=== PATIENT | female | born 1945 | race Caucasian/White ===

== ENCOUNTER 2020-01-12 21:14 | Emergency (ER) | payer OTHER, BC ==
[2020-01-12] MEDS ORDERED: ONDANSETRON 4 MG/2 ML VIAL ONE (21:56)
[2020-01-12] MEDS ORDERED: METOPROLOL TARTRATE 5 MG/5 ML INJ IV ONE ×2 (21:59→22:45)
[2020-01-12] MEDS ORDERED: NA CHLORIDE 0.9% 1,000 ML ONE (22:07)
[2020-01-12 22:21] LABS: Basophils % 0.5 % (0-1.3); Hematocrit 29.6 % (36.0-45.0); MPV 8.6 fL (7.6-11.3); RBC Red Blood Cell Count 3.82 M/uL (3.86-4.86)
[2020-01-12] MEDS ORDERED: MORPHINE 2 MG/ML SYR ONE (22:21)
[2020-01-12 22:22] LABS: Protime INR 2.52
[2020-01-12 22:37] LABS: ALT/SGPT 10 U/L (12-78); AST/SGOT 18 U/L (15-37); Albumin 2.4 g/dL (3.4-5.0); Alkaline Phosphatase 88 U/L (45-117); BUN Blood Urea Nitrogen 25 mg/dL (7-18); Bicarbonate 22 mmol/L (21-32); Bilirubin Direct 0.2 mg/dL (0-0.2); Bilirubin Total 0.5 mg/dL (0.2-1.0); Glucose Level 127 mg/dL (74-106); Magnesium 2.3 mg/dL (1.8-2.4); NT PRO-BNP 434 pg/mL (<125); Potassium 4.2 mmol/L (3.5-5.1); Protein, Total 7.4 g/dL (6.4-8.2); Sodium Level 140 mmol/L (136-145); Troponin (Emerg Dept Use Only) < 0.02 ng/mL (0.0-0.045)
--- NOTE | 2020-01-12 22:58 | ER ---
Nurse's Notes [facility] Name: Earl Orellnaa Age: 74 yrs Sex: Female : 1945 Arrival Date: 01/12/2020 Time: 21:16 Bed 3 Private MD: Diagnosis: Supraventricular tachycardia. Pulmonary embolism. Uterine Ca with metastasis. Presentation: 01/11 21:19 Chief complaint: EMS states: that they were toned for pt having severe abd/back pain. fc Upon there arrival and hooking pt to monitor it was noted that pt was in SVT at 180. Coronavirus screen: Client denies travel out of the [place] in the last 14 days. Ebola Screen: Patient negative for fever greater than or equal to 101.5 degrees Fahrenheit, and additional compatible Ebola Virus Disease symptoms Patient denies exposure to infectious person. Patient denies travel to an Ebola-affected area in the 21 days before illness onset. Initial Sepsis Screen: Does the patient meet any 2 criteria? HR > 90 bpm. No. Patient's initial sepsis screen is negative. Does the patient have a suspected source of infection? No. Patient's initial sepsis screen is negative. Risk Assessment: Do you want to hurt yourself or someone else? Patient reports no desire to harm self or others. Onset of symptoms was January 12, 2020. Care prior to arrival: Medication(s) given: Normal saline infusion, 700 ml Versed 5 mg and Adenosine 12 mg IV initiated. 18 GA, in the right antecubital area, Glucose check: 180 Shocked with 50 joules. 21:19 Method Of Arrival: EMS: [facility] 21:19 Acuity: ROMULO 2 fc Historical: - Allergies: 21:34 Aspirin; fc - Home Meds: 21:34 Eliquis oral oral [Active]; fc - PMHx: 21:34 Pulmonary Embolus; Uterine Cancer; ALS; fc - PSHx: 21:34 None; fc - Immunization history:: Last tetanus immunization: unknown, Flu vaccine is not up to date. - Social history:: Smoking status: Patient denies any tobacco usage or history of. Patient/guardian denies using alcohol, street drugs. Screenin:19 Abuse screen: Denies threats or abuse. Nutritional screening: No deficits noted. fc Tuberculosis screening: No symptoms or risk factors identified. Fall Risk None identified. Fall in past 12 months (25 points). Secondary diagnosis (15 points) ALS. IV access (20 points). Ambulatory Aid- None/Bed Rest/Nurse Assist (0 pts). Gait- Impaired (20 pts.). Mental Status- Overestimates/Forgets Limitations (15 pts.). Total Argueta Fall Scale indicates High Risk Score (45 or more points). Fall prevention measures have been instituted. Side Rails Up X 2 Placed Close to Nursing Station Frequent Obs/Assessments Occuring Family Present and informed to notify staff if the need to leave the bedside As available patient and family educated on Fall Prevention Program and Strategies. Assessment: 21:19 General: Appears distressed, uncomfortable, Behavior is calm, cooperative, appropriate jb4 for age. Pain: Complains of pain in Generalized body pains. Pain does not radiate. Pain currently is 10 out of 10 on a pain scale. 21:19 Neuro: Level of Consciousness is awake, alert, obeys commands, Oriented to person, jb4 place, time, situation. Cardiovascular: Patient's skin is warm and dry. Respiratory: Airway is patent Respiratory effort is even, unlabored, Respiratory pattern is regular, symmetrical. GI: No signs and/or symptoms were reported involving the gastrointestinal system. : No signs and/or symptoms were reported regarding the genitourinary system. EENT: No signs and/or symptoms were reported regarding the EENT system. Derm: Skin is intact, Skin is dry, Skin is pale, Skin temperature is warm. Musculoskeletal: Circulation, motion, and sensation intact. Range of motion: intact in all extremities. 21:40 Reassessment: PT back in SVT with a heart rate of 174, reports nausea, provider jb4 notified, see MAR for orders. 22:19 Reassessment: PT's pressure dropped to 88/70 provider notified, see MAR for orders. jb4 22:48 Reassessment: Patient appears in no apparent distress at this time. Patient and/or jb4 family updated on plan of care and expected duration. Pain level reassessed. Pt remains alert and oriented. Appears to be resting more comfortably after second dose of Lopressor. Reports pain is unchanged with morphine administration, Provider notified that heart rate is maintaining at 144 bpm. Blood pressure is holding at 91/69. respirations are even and unlabored. 23:16 Reassessment: No changes from previously documented assessment. Patient and/or family jb4 updated on plan of care and expected duration. Pain level reassessed. Patient is alert, oriented x 3, equal unlabored respirations, skin warm/dry/pink. Report called to Mimi SMITH, at [facility]. 23:18 Reassessment: PT's HR 150, provider notified, see [facility] for orders. jb4 23:48 Reassessment: Patient appears in no apparent distress at this time. Patient and/or jb4 family updated on plan of care and expected duration. Pain level reassessed. Patient is alert, oriented x 3, equal unlabored respirations, skin warm/dry/pink. Report given to EMS. Vital Signs: 21:19 BP 125 / 93; Pulse 119; Resp 20; Temp 97.6(O); Pulse Ox 100% on R/A; Weight 79.38 kg fc (R); Height 5 ft. 9 in. (175.26 cm) (R); Pain 10/10; 21:47 BP 102 / 71; Pulse 176; Resp 19; Pulse Ox 100% on 2 lpm NC; jb4 22:17 BP 88 / 70; Pulse 147; Resp 19; Pulse Ox 100% on 2 lpm NC; jb4 22:45 BP 91 / 69; Pulse 143; Resp 20; Pulse Ox 100% on 2 lpm NC; jb4 23:15 BP 92 / 65; Pulse 148; Resp 20; Pulse Ox 100% on 2 lpm NC; jb4 23:30 BP 91 / 54; Pulse 142; Resp 22; Pulse Ox 100% on 2 lpm NC; jb4 21:19 Body Mass Index 25.84 (79.38 kg, 175.26 cm) ED Course: 21:16 Patient arrived in ED. cf2 21:19 Patient has correct armband on for positive identification. Bed in low position. Call light in reach. Side rails up X2. registration manager on. Pulse ox on. NIBP on. 21:19 Maintain EMS IV. Dressing intact. Good blood return noted. Site clean \T\ dry. Gauge \T\ fc site: 18 gauge to right a/c. 21:26 Edil Calvo MD is Attending Physician. pkl 21:29 Maury Tee, SARAH is Primary Nurse. jb4 21:33 Triage completed. fc 21:34 Arm band placed on Patient placed in an exam room, on a stretcher. fc 21:59 XRAY Chest (1 view) In Process Unspecified. EDMS 22:00 Initiated transfer to [facility] spoke with Kathrin Ferris. dc5 22:[address] Benjamin. [facility] 22:[address] Medicine [address] Powers. ar5 23:01 Acceptance given by Kathrin Ferris. Accepting physician is Dr. Powers. Pt. going to [address] [facility] ICU 821 Bed 8. Call report to [phone]. 23:48 No provider procedures requiring assistance completed. Patient transferred, IV remains jb4 in place. Administered Medications: 21:42 Drug: Zofran (Ondansetron) 4 mg Route: IVP; Site: right antecubital; jb4 22:15 Follow up: Response: No adverse reaction; Nausea is decreased jb4 21:45 Drug: Lopressor 5 mg Route: IVP; Site: right antecubital; jb4 22:00 Follow up: Response: No adverse reaction; Marked relief of symptoms jb4 21:55 Drug: NS 0.9% 1000 ml Route: IV; Rate: 100 ml/hr; Site: right antecubital; jb4 23:34 Follow up: Response: No adverse reaction; IV Status: Infusion continued upon transfer jb4 22:11 Drug: morphine 1 mg {Note: Rass score 1.} Route: IVP; Site: right antecubital; jb4 22:40 Follow up: Response: Pain is unchanged, physician notified jb4 22:20 Drug: NS 0.9% 250 ml Route: IV; Rate: bolus; Site: right antecubital; jb4 22:51 Follow up: Response: No adverse reaction; Blood pressure is elevated; IV Status: jb4 Completed infusion 22:34 Drug: Lopressor 2.5 mg Route: IVP; Site: right antecubital; jb4 22:40 Follow up: Response: No adverse reaction jb4 23:20 Drug: Lopressor 2.5 mg Route: IVP; Site: right antecubital; jb4 23:33 Follow up: Response: No adverse reaction [facility] Outcome: 22:57 ER care complete, transfer ordered by MD. march 23:48 Transferred by ground EMS [facility] to [facility], Transfer form jb4 completed. 23:48 Condition: improved 23:48 Discharge instructions given to patient, Instructed on the need for transfer, Demonstrated understanding of instructions. 23:50 Patient left the ED. jb4 Signatures: Dispatcher [employer] EDEdil Mullins MD MD pkl Chretien, Felicia RN RN Maury Coker RN RN jb4 Jessi Shen arLeonela Colunga cf2 Corrections: (The following items were deleted from the chart) 22:51 22:48 Reassessment: Patient appears in no apparent distress at this time. Patient jb4 and/or family updated on plan of care and expected duration. Pain level reassessed. Pt remains alert and oriented. Appears to be resting more comfortably after second dose of Lopressor. Reports pain is unchanged with morphine administration, Provider notified that heart rate is maintaining at 144 bpm. Blood pressure is holding at 91/63. respirations are even and unlabored. jb4 22:51 22:38 Response: No adverse reaction; IV Status: Completed infusion jb4 jb4 23:06 22:48 Reassessment: Patient appears in no apparent distress at this time. Patient jb4 and/or family updated on plan of care and expected duration. Pain level reassessed. Pt remains alert and oriented. Appears to be resting more comfortably after second dose of Lopressor. Reports pain is unchanged with morphine administration, Provider notified that heart rate is maintaining at 144 bpm. Blood pressure is holding at 91/69. respirations are even and unlabored. jb4
--- NOTE | 2020-01-12 22:58 | EDPHYS ---
Physician Documentation [facility] Name: Earl Orellana Age: 74 yrs Sex: Female : 1945 Arrival Date: 01/12/2020 Time: 21:16 Bed 3 Private MD: ED Physician Edil Calvo HPI: 01/11 22:40 This 74 yrs old Female presents to ER via EMS with complaints of pkl Palpitations, Pain All Over. 22:40 The patient presents with a history of heart racing. Context: The symptoms occur at pkl rest. Onset: The symptoms/episode began/occurred just prior to arrival, 1 hour(s) ago. Associated signs and symptoms: Pertinent positives: back and abdominal pain. Patient discharged from [facility] last week. Diagnosed with Uterine Ca with metastasis and PE. Patient has H/O ALS. Historical: - Allergies: 21:34 Aspirin; fc - Home Meds: 21:34 Eliquis oral oral [Active]; fc - PMHx: 21:34 Pulmonary Embolus; Uterine Cancer; ALS; fc - PSHx: 21:34 None; fc - Immunization history:: Last tetanus immunization: unknown, Flu vaccine is not up to date. - Social history:: Smoking status: Patient denies any tobacco usage or history of. Patient/guardian denies using alcohol, street drugs. ROS: 22:40 Eyes: Negative for injury, pain, redness, and discharge, ENT: Negative for injury, pkl pain, and discharge, Neck: Negative for injury, pain, and swelling. 22:40 Cardiovascular: Positive for palpitations. 22:40 Respiratory: Negative for cough. 22:40 Abdomen/GI: Positive for abdominal pain. 22:40 Back: Positive for pain at rest. 22:40 : Negative for urinary symptoms. 22:40 MS/extremity: Negative for acute changes. 22:40 Skin: Negative for rash. 22:40 Neuro: Negative for altered mental status. Exam: 22:40 Head/Face: Normocephalic, atraumatic. Eyes: Pupils equal round and reactive to light, pkl extra-ocular motions intact. Lids and lashes normal. Conjunctiva and sclera are non-icteric and not injected. Cornea within normal limits. Periorbital areas with no swelling, redness, or edema. ENT: Nares patent. No nasal discharge, no septal abnormalities noted. Tympanic membranes are normal and external auditory canals are clear. Oropharynx with no redness, swelling, or masses, exudates, or evidence of obstruction, uvula midline. Mucous membranes moist. Neck: Trachea midline, no thyromegaly or masses palpated, and no cervical lymphadenopathy. Supple, full range of motion without nuchal rigidity, or vertebral point tenderness. No Meningismus. Chest/axilla: Normal chest wall appearance and motion. Nontender with no deformity. No lesions are appreciated. 22:40 Cardiovascular: Rate: tachycardic, actual rate is 140 bpm, Rhythm: regular. 22:40 ECG was reviewed by the Attending Physician. 22:40 Respiratory: the patient does not display signs of respiratory distress, Respirations: normal, Breath sounds: are clear throughout. 22:40 Abdomen/GI: Bowel sounds: normal, Palpation: soft, mild abdominal tenderness, in the right lower quadrant and left lower quadrant. 22:40 Back: pain, that is moderate, of the lower back. 22:40 : Exam negative for acute changes. 22:40 Musculoskeletal/extremity: Exam is negative for acute changes. 22:40 Skin: Exam negative for rash. 22:40 Neuro: Orientation: appropriate for stated age, Mentation: is normal, Cranial nerves: grossly normal, Motor: is normal. Vital Signs: 21:19 BP 125 / 93; Pulse 119; Resp 20; Temp 97.6(O); Pulse Ox 100% on R/A; Weight 79.38 kg fc (R); Height 5 ft. 9 in. (175.26 cm) (R); Pain 10/10; 21:47 BP 102 / 71; Pulse 176; Resp 19; Pulse Ox 100% on 2 lpm NC; jb4 22:17 BP 88 / 70; Pulse 147; Resp 19; Pulse Ox 100% on 2 lpm NC; jb4 22:45 BP 91 / 69; Pulse 143; Resp 20; Pulse Ox 100% on 2 lpm NC; jb4 23:15 BP 92 / 65; Pulse 148; Resp 20; Pulse Ox 100% on 2 lpm NC; jb4 23:30 BP 91 / 54; Pulse 142; Resp 22; Pulse Ox 100% on 2 lpm NC; jb4 21:19 Body Mass Index 25.84 (79.38 kg, 175.26 cm) MDM: 21:26 Patient medically screened. pkl 22:54 Data reviewed: vital signs, nurses notes, lab test result(s), EKG, radiologic studies, pkl plain films. ED course: Talked to Dr. Powers, transfer to [facility]. 01/11 21:55 Order name: Basic Metabolic Panel; Complete Time: 22:48 pkl 01/11 21:55 Order name: CBC with Diff; Complete Time: 00:42 pkl 01/11 21:55 Order name: LFT's; Complete Time: 22:48 pkl 01/11 21:55 Order name: Magnesium; Complete Time: 22:48 pkl 01/11 21:55 Order name: NT PRO-BNP; Complete Time: 22:48 pkl 01/11 21:55 Order name: PT-INR; Complete Time: 22:48 pkl 01/11 21:55 Order name: Troponin (emerg Dept Use Only); Complete Time: 22:48 pkl 01/11 21:55 Order name: XRAY Chest (1 view) pkl 01/11 22:23 Order name: Manual Differential; Complete Time: 00:42 EDMS 01/11 21:55 Order name: EKG; Complete Time: 21:56 pkl 01/11 21:55 Order name: Cardiac monitoring; Complete Time: 22:10 pkl 01/11 21:55 Order name: EKG - Nurse/Tech; Complete Time: 22:10 pkl 01/11 21:55 Order name: IV Saline Lock; Complete Time: 22:10 pkl 01/11 21:55 Order name: Labs collected and sent; Complete Time: 22:10 pkl 01/11 21:55 Order name: O2 Per Protocol; Complete Time: 22:11 pkl 01/11 21:55 Order name: O2 Sat Monitoring; Complete Time: 22:11 pkl Administered Medications: 21:42 Drug: Zofran (Ondansetron) 4 mg Route: IVP; Site: right antecubital; jb4 22:15 Follow up: Response: No adverse reaction; Nausea is decreased jb4 21:45 Drug: Lopressor 5 mg Route: IVP; Site: right antecubital; jb4 22:00 Follow up: Response: No adverse reaction; Marked relief of symptoms jb4 21:55 Drug: NS 0.9% 1000 ml Route: IV; Rate: 100 ml/hr; Site: right antecubital; jb4 23:34 Follow up: Response: No adverse reaction; IV Status: Infusion continued upon transfer jb4 22:11 Drug: morphine 1 mg {Note: Rass score 1.} Route: IVP; Site: right antecubital; jb4 22:40 Follow up: Response: Pain is unchanged, physician notified jb4 22:20 Drug: NS 0.9% 250 ml Route: IV; Rate: bolus; Site: right antecubital; jb4 22:51 Follow up: Response: No adverse reaction; Blood pressure is elevated; IV Status: jb4 Completed infusion 22:34 Drug: Lopressor 2.5 mg Route: IVP; Site: right antecubital; jb4 22:40 Follow up: Response: No adverse reaction jb4 23:20 Drug: Lopressor 2.5 mg Route: IVP; Site: right antecubital; jb4 23:33 Follow up: Response: No adverse reaction jb Disposition: 01/12/20 22:57 Transfer ordered to [facility]. Diagnosis is Supraventricular tachycardia. Pulmonary embolism. Uterine Ca with metastasis. . - Reason for transfer: Higher level of care. - Accepting physician is Dr. Powers. - Condition is Stable. - Problem is new. - Symptoms are unchanged. Signatures: Dispatcher [employer] Edil Melara MD MD pkUnique Marshall RN RN fc Bryson, James, RN RN jb4 Corrections: (The following items were deleted from the chart) 23:50 22:57 01/12/2020 22:57 Transfer ordered to [facility]. Diagnosis is Supraventricular jb4 tachycardia. Pulmonary embolism. Uterine Ca with metastasis. . Reason for transfer: Higher level of care. Accepting physician is Dr. Powers. Condition is Stable. Problem is new. Symptoms are unchanged. pkl
[2020-01-12 23:26] LABS: Blood Morphology Comment NOT SEEN (NOT SEEN); Platelet Estimate ADEQ
[2020-01-13 00:59] VITALS: BP 91/54; TEMP 97.6; O2SAT 100
--- NOTE | 2020-01-13 08:00 | RAD REPORT ---
EXAM DESCRIPTION: Korey Single View01/12/2020 10:01 pm CLINICAL HISTORY: Palpitation COMPARISON: none FINDINGS: Left lower lobe opacity The right lung appears clear of acute infiltrate The heart is normal size IMPRESSION: Left lower lobe opacity probably pneumonia. This should be followed until it is clear to help exclude a post obstructive process/underlying mass Small left pleural effusion
--- NOTE | 2020-01-14 05:30 | EKG ---
Test Date: 2020-01-12 Test Time: 21:47:56 Shredding Machine Operator: ROBERT MEASUREMENT RESULTS: Intervals: Rate: 176 [place]: QRSD: 70 QT: 262 QTc: 448 [place]: P: FL: QRS: 60 T: 173 INTERPRETIVE STATEMENTS: Supraventricular tachycardia Nonspecific ST and T wave abnormality Abnormal ECG Compared to ECG 01/12/2020 21:25:32 ST (T wave) deviation now present Sinus tachycardia no longer present T-wave abnormality no longer present Electronically Signed On 01-14-20 05:28:47 CDT by Federico Mendoza
--- NOTE | 2020-01-14 05:30 | EKG ---
Test Date: 2020-01-12 Test Time: 21:25:32 Geospatial Scientist: ROBERT MEASUREMENT RESULTS: Intervals: Rate: 119 IL: 190 QRSD: 68 QT: 290 QTc: 407 [place]: P: 47 IL: 190 QRS: 60 T: 73 INTERPRETIVE STATEMENTS: Sinus tachycardia Nonspecific T wave abnormality Abnormal ECG Compared to ECG 11/04/2009 11:20:42 T-wave abnormality now present Electronically Signed On 01-14-20 05:28:48 CDT by Federico Mendoza
--- OUTSIDE RECORDS SUMMARY | 2020-01-14 17:01 | XMS REPORT | Summary of Care ---
:1945 Author Organization [facility] Address [address] [place] [address] Care Team Providers Name Role Phone Mikael Dominguez Primary Care Provider Reason for Referral MRI/CAT Scan (STAT) Status Reason Specialty Diagnoses / Referred By Referred To Procedures Contact Contact New Request Diagnostic Diagnoses Abdominal mass, unspecified abdominal location Mass of pelvis Pleural effusion Christy Kelly Radiology Procedures CT THORAX W CONTRAST CT THORAX WO CONTRAST MD Valeriano [address] [place] [address] (Routine) Status Reason Specialty Diagnoses / Referred By Referred To Procedures Contact Contact New Request Diagnostic Diagnoses Dysphagia, unspecified type Jason Mcgrath MD Radiology Procedures MOD BARIUM SWALLOW, (COOKIE) [address] [place] [address] (Routine) Status Reason Specialty Diagnoses / Referred By Referred To Procedures Contact Contact New Request OG-GYNECOLOGIC Diagnoses Episode of heavy vaginal bleeding Abdominal mass, unspecified abdominal location Mass of pelvis Pleural effusion Jason Mcgrath MD ONCOLOGY Procedures Discharge Follow-Up: Specialty Service OG-GYNECOLOGIC ONCOLOGY; 1 Week [address] [place] [address] MRI/CAT Scan (STAT) Status Reason Specialty Diagnoses / Referred By Referred To Procedures Contact Contact New Request Diagnostic Diagnoses Episode of heavy vaginal bleeding Abdominal pain, unspecified abdominal location ChavezBettina S, Radiology Procedures CT ABDOMEN PELVIS W CONTRAST [address] [place] [address] Reason for Visit Reason Comments Vaginal Bleeding Auth/Cert Status Reason Specialty Diagnoses / Referred By Referred To Procedures Contact Contact Emergency Medicine [facility] ergency Dept [address] [place] [address] Fax: Encounter Details Date Type Department Care Team Description 01/04/2020 - Emergency Transplant/Gynecology Jerome Otero, PRESSURE VESSEL INSPECTOR [address] [place] [phone] Vaginal bleeding 01/05/2020 /Oncology (OSCAR 9D) Bettina Chavez, PAC [address] [place], [place] [id number] [facility] Marty Rossi MD [address] [facility] [id number] [place], [place] [id number] [place] [address] Allergies Active Allergy Reactions Severity Noted Date Comments Aspirin Anaphylaxis 01/04/2020 documented as of this encounter (statuses as of 01/05/2020) Medications Medication Sig Dispensed Refills Start Date End Date Status riluzole 50 mg tablet Take 50 mg by 0 Active mouth every 12 (twelve) hours. documented as of this encounter (statuses as of 01/05/2020) Active Problems Problem Noted Date Vaginal bleeding 01/05/2020 documented as of this encounter (statuses as of 01/05/2020) Social History Tobacco Use Types Packs/Day Years Used Date Never Assessed Sex Assigned at Date Recorded Not on file COVID-19 Exposure Response Date Recorded In the last month, have you been in contact with No / Unsure 01/04/2020 2:48 PM CDT someone who was confirmed or suspected to have Coronavirus / COVID-19? documented as of this encounter Last Filed Vital Signs Vital Sign Reading Time Taken Comments Blood Pressure 129/69 01/05/2020 5:09 PM CDT Pulse 81 01/05/2020 5:09 PM CDT Temperature 36.7 C (98.1 F) 01/05/2020 5:09 PM CDT Respiratory Rate 24 01/05/2020 5:09 PM CDT Oxygen Saturation 98% 01/05/2020 5:09 PM CDT Inhaled Oxygen Concentration - - Weight 77.5 kg (170 lb 12.8 oz) 01/05/2020 5:00 AM CDT Height 170.2 cm (5' 7") 01/04/2020 2:45 PM CDT Body Mass Index 26.75 01/04/2020 2:45 PM CDT documented in this encounter Progress Notes Manjit Gotti MBBS - 01/05/2020 3:57 PM CDTCONDITION CODE 44 Note After reviewing this case with the Meter Repairer Helper it has been determined that this case doesnot meet medical necessity guidelines for an inpatient admission. I concur that this case should bechanged to outpatient, using Medicare Condition Code 44. Patient name: Earl Orellana Service: GYNGEN Attending: Jason Farley MD, [facility] Physician Advisor Samia schwarz LMSW - 01/05/2020 2:34 PM CDT Care Management Discharge Disposition Note (DCDN) 5-2-1 Interventions: Disease specific education;Intensive medication reconciliation/management;Teachback;Clear discharge plan;Follow-up appointments 5-2-1 Providers: Physician;Meter Repairer Helper/Mac Artist;Nurse 5-2-1 Patient Capacity Improvements: Transportation arrangements Discharge Plan for ongoing care and services: Patient Choice completed for referred services: Discussed with patient/patients family involved in decision making: Patient or family caregiver understands, and agrees with discharge plan. Trever Orellana () [phone] Discharge Plan: DME location: Other DME location: Durable Medical Equipment: Home Health location: Discharge location(s): Home [address] [place] [address] Community resources/referrals made or provided to patient: No Resources/Referrals: Mental Status: Alert & Oriented to Person,Place & Time Psychosocial issues and/or concerns resulting in patient being a high risk for re-admission: Manage ADL indepentdly: Yes Living Arrangement: Home: single story Other living arrangement: Address of living arrangement: [address] [place] [address] Funding Resources: Medicare A & B;Supplement/Secondary Has patient been referred to [facility]/Jose? No Nursing informed of discharge plan: Yes CHP referral sent? No CM medication request completed (if appropriate): No PCP: Yes Transportation: Private Vehicle Trever Orellana () [phone]; Francesca Morris (Dtr) [phone] Prior authorization obtained for ambulance: Authorization number: CPT code: Discharge Medications Will the patient be able to obtain his medications? Yes Does the patient have transportation to to obtain the prescription medications? Yes CM Medication Request completed (if appropriate): Yes Name of RN informed: Expected discharge date: 01/05/2020 Time: 1500 Additional Information: CM/SW Name & Contact number: Samia Cason LMSW Ph. [phone] The following information has been provided to the facility noted above: reason for the patient discharge or transfer; patients physical and psychosocial status; summary of care, treatment, servicesprovided to patient; and the patient progress toward goals. Samia Araiza LMSW - 01/05/2020 9:57 AM CDTCare Management Social Functional Assessment Patient Name: Earl Orellana Age: [age] year old Sex: female Previous admit date: N/A Current diagnosis and co-morbidities: Abdominal mass Readmission Questions: Was patient discharged from any acute care hospital within the last 30 days: No Social Functional Assessment: Primary language spoken/preferred: Namibian Mental Status: Alert & Oriented to Person,Place & Time Information given by: Self Patient's support system: Spouse;Child Name and number of support system: Trever Orellana () [phone]; Francesca Morris (Dtr) [phone] Primary Firestopper Technician: Self MPOA: No Living Arrangement: Home: single story Address of living arrangement : [address] [place] [address] Persons living in home: Self;Spouse Names & numbers of persons living in home: Trever Orellana () [phone] Baseline functional status- ambulation: Requires minimal to moderate assistance Functional status-baseline personal care: Requires minimal to moderate assistance Baseline functional status- driving: Dependent Baseline functional status- grocery shopping: Dependent Functional status-baseline housekeeping: Dependent Functional status-baseline meal prep: Dependent Current functional status same as prior: Yes Do you have a PCP?: Yes Name of PCP: Ginger Dominguez Home Health Care Agency: No Provider Services: No DME Company: No Equipment: Wheelchair: Electric;Walker;Cane;Shower bench;Grab bars;Other Other equipment: WC Van Hemodialysis: No Community resources utilized: None Funding Resources: Medicare A & B;Supplement/Secondary Prescription coverage plan: Medicare Part D Pharmacy where meds are filled: Other Other pharmacy: [facility] in [place], [place] Anticipated services prior to disharge: Continue Medical Eval;Reassess prior to discharge Expected mode of discharge transportation: Same as support system Additional info required for discharge planning: Pending medical evaluation Recommended discharge plan: Home with new Home Health;New placement;Home SFA Complete: Social Functional Assessment complete: Yes Alcohol Use Screening (AUDIT-C) How often do you have a drink containing alcohol?: Never SCORE: 0 Did patient elect to have resources provided: No Role of Care Management explained. Any issues or concerns with obtaining/affording your medications at home: no. Are you or your support system able to draft roller picker medications at discharge: yes. Samia Cason LMSW Mac Artist Care Management C: [phone] O: [phone] [email or web address] documented in this encounter H&P Notes Arnie Perez MD - 01/04/2020 11:04 PM CDT GYNECOLOGY H&P DATE OF SERVICE: 01/04/2020 NAME: Earl Orellana #: [id number] PCP: None CC: Vaginal Bleeding HPI: Earl Orellana is a 74 year old with a history of recently diagnosed ALS who presents as atransfer from [place] ED for vaginal bleeding with abdominal mass. Patient reports the bleeding started earlier today when she stood up and felt blood run down her legs. This is the first time this has happened. She denies nausea, vomiting, diarrhea, constipation, dysuria, hematuria, abnormal vaginaldischarge. She reports she has only had to have one pad change since admission to the ED. She reports having issues with abnormal bleeding shortly after menopause which required a D&C and polypectomy but reports she has not had issues with bleeding since then. She reports her last pap smear was 15+ years ago and she has never had an abnormal pap smear. Family history significant for: - Mother with breast cancer (was successfully treated and from natural causes) - Father with rectal cancer () - Sister with esophageal cancer ( 3 years ago) - Brother with kidney cancer ( today) LMP: 20+ years ago Mammogram History: Last mammogram was "many years ago" and it was never abnormal Last Pap Smear: 15+ years ago, never abnormal Last Colorectal Screening: Never done ROS: Constitutional: denies chills, denies fever and denies weakness. Eyes: negative. Cardiovascular: denies chest pain and denies palpitations. Respiratory: denies cough and denies shortness of breath. Breast: negative. Gastrointestinal: + abdominal pain and denies constipation, denies diarrhea, denies nausea and denies vomiting. Genitourinary: + abnormal vaginal bleeding and denies burning, denies dysuria and denies hematuria. Neuro: + speech difficulty and denies dizziness and denies lightheadedness. Psych: feels sad (brother today) and denies anxiety. Endocrine: negative. Hem/Lymph: negative. PMH: Past Medical History: Diagnosis Date ALS (amyotrophic lateral sclerosis) PSH: Past Surgical History: Procedure Laterality Date HYSTEROSCOPY WITH DILATATION AND CURETTAGE (SHX) MEDICATIONS: Current Discharge Medication List STOP taking these medications riluzole 50 mg tablet Comments: Reason for Stopping: ALLERGIES: Allergies Allergen Reactions Aspirin Anaphylaxis PHYSICAL EXAM Patient Vitals for the past 24 hrs: BP Temp Temp src Pulse Resp SpO2 Height Weight 01/04/20 2100 136/85 80 14 96 % 01/04/20 2000 130/64 96 18 97 % 01/04/20 1900 (!) 155/80 81 17 93 % 01/04/20 1800 135/71 72 23 97 % 01/04/20 1638 136/75 76 18 98 % 01/04/20 1445 135/75 36.6 C (97.9 F) Oral 79 14 97 % 1.702 m (5' 7") 72.6 kg (160 lb) Physical exam: General: alert and oriented time 3, in no apparent distress Cardio: normal S1 and S2, RRR, no murmurs heard Lungs: CTA bilaterally, no crackles, rhonchi, or wheezing heard Abdominal: soft, non-tender, Non-distended, firm, enlarged, nonmobile uterus palpated at umbilicus (18cm) Extremities: no clubbing or edema present bilaterally : (R4 exam) Speculum exam: limited due to patient's intolerance of positioning. 10cc of old blood noted in vaginal vault. Could not visualize cervix. Bimanual exam: cervix noted to be very anterior and behind pubic bone. Uterus noted to be fixed and 18 cm in size. No discrete masses palpated. LABS: CBC WBC (10*3/L) Date Value 01/04/2020 8.17 RBC (10*6/L) Date Value 01/04/2020 4.43 PLT (10*3/L) Date Value 01/04/2020 294 HGB (g/dL) Date Value 01/04/2020 10.8 (L) HCT (%) Date Value 01/04/2020 36.1 CMP NA (mmol/L) Date Value 01/04/2020 138 K (mmol/L) Date Value 01/04/2020 4.0 CALCIUM (mg/dL) Date Value 01/04/2020 9.3 CL (mmol/L) Date Value 01/04/2020 108 BUN (mg/dL) Date Value 01/04/2020 19 CREATININE (mg/dL) Date Value 01/04/2020 0.64 GLUCOSE (mg/dL) Date Value 01/04/2020 101 CO2 TOTAL (mmol/L) Date Value 01/04/2020 24 Urinalysis PROTEIN (no units) Date Value 01/04/2020 Negative PH (no units) Date Value 01/04/2020 5.0 GLU U QUAL (no units) Date Value 01/04/2020 Normal KETONES (no units) Date Value 01/04/2020 5 mg/dL (A) BILIRUBIN (no units) Date Value 01/04/2020 Negative LEUK BEL (no units) Date Value 01/04/2020 Negative NITRITE (no units) Date Value 01/04/2020 Negative SP GRAVITY (no units) Date Value 01/04/2020 1.026 IMAGING: Ct Abdomen Pelvis W Contrast Result Date: 01/04/2020 1. Large heterogenous endometrial cavity mass highly concerning for endometrial carcinoma. Soft tissue implants in the rectouterine space are concerning for extrauterine invasion. 2. Findings of peritoneal carcinomatosis with numerous implants in the peritoneal cavity and wall. Trace ascites. Numerous mesenteric and pelvic lymph nodes concerning for metastasis. 3. Soft tissue density mass in the left 10th costovertebral junction invading the left lamina compatible with metastasis. No extension into the spinal canal is identified. 4. Moderate left pleural effusion and atelectasis of the left lower lobe. Preliminary Report Dictated by Resident: Guanakito Benitez I, Tino Hua MD., have reviewed this study and agree with the above report. ASSESSMENT Earl Orellana is a 74 year old with abnormal vaginal bleeding and radiology findings suspicious for endometrial cancer with possible metastasis. She is currently stable and in no acute distress 1. Vaginal Bleeding - Reports started today when she stood up and noticed blood running down her legs; she denies previous episodes of vaginal bleeding - Her last pap smear was 15+ years ago, she has never had an abnormal pap smear to her knowledge - patient denies nausea, vomiting, constipation, diarrhea - CTAP with contrast performed today (01/03) shows endometrial cavity mass highly concerning for endometrial carcinoma with soft tissue implants in the rectouterine space concerning for extrauterine invasion, and peritoneal carcinomatosis with numerous implants in the peritoneal cavity and wall as well as numerous mesenteric and pelvic lymph nodes concerning for metastasis - Speculum exam: limited due to patient's intolerance of positioning. 10cc of old blood noted in vaginal vault. Could not visualize cervix. - Bimanual exam: cervix noted to be very anterior and behind pubic bone. Uterus noted to be fixed and 18 cm in size. No discrete masses palpated. -VSS, Hgb 10.8 - Plan: Will do strict pad counts overnight. Plan for Pap smear/Endometrial biopsy in AM. Consider football coach onc consult. 2. Speech difficulty secondary to likely ALS - Patient reports speech issues that started a few months ago - She has been seen by 2 neurologists and a neuromuscular specialist and has been told she likely has ALS - Was taking Riluzole 50mg but stopped. Reports her next neurology appointment was supposed to be sometime at the end of January but she is unsure if she is going to keep it "with everything going on." -Plan: Riluzole ordered for admission D/w Dr. Bermudez who d/w Dr. Enid Perez MD OBGYN PGY-1 01/05/2020 12:34 AM Pager number: [phone] Associated attestation - Marty Rossi MD - 01/05/2020 9:26 AM CDTThis 74 y/o female patient was [facility] ED after presentingthere with c/o onset of vaginal bleeding. Evaluation in [facility] ED included CT scan of abdom/pelvis which revealed a large intrauterine mass, peritoneal lesions, and pleural effusion consistent with endometrial malignancy and metastases. I agree with the H&P by Dr Perez. Patient will be evaluated with endometrial biopsy to obtain histology. Transfer to [facility]/ONC service anticipated.documented in this encounter ED Notes Samia Holcomb RN - 01/04/2020 2:43 PM CDTPatient states she stood up earlier today and "blood came out running down my legs". This is the first time this has happened. She appears pale and is complaining of general malaise. She think her abdomen is "not as flat" as it usually is and complains of left lower back pain. Abdomen appears round and is slightly firm when palpated. documented in this encounter Miscellaneous Notes Nursing Note - Julia Landers RN - 01/05/2020 9:24 AM CDTRequest to notify Neurologist - Dr. Tutu Foley @ [facility] D Nurse Note - Viktoria Verma RN - 01/04/2020 11:05 PM CDTNurse Report Report given to SARAH Carlisle. Chief complaint, assessment findings and orders reviewed. Plan of care discussed with both nurses. Patient/family members verbalized understanding for transfer and admission. Viktoria Verma RN D Nurse Note - Viktoria Verma RN - 01/04/2020 10:52 PM CDT Attempted to call report. D Nurse Note - Viktoria Verma RN - 01/04/2020 9:25 PM CDTNurse Report Attempted to call report. Viktoria Verma RN D Nurse Note - Viktoria Verma RN - 01/04/2020 9:16 PM CDTPatient admitted to [facility] for diagnosis of abdominal mass and vaginal bleeding. Patient agrees to admission, discussed plan of care with patient and family. Patient is awake, alert, oriented, resp reg unlabored, color appropriate for race, PIV intact. No adverse reaction to medications administered while in ED. Belongings with patient to unit. D Nurse Yordan - Viktoria Verma RN - 01/04/2020 9:15 PM CDTReport given to Jay мария Pal, EMS. D Nurse Note - Gagan Drake RN - 01/04/2020 8:37 PM CDTAllegiance new ETA is 35 mins. D Nurse Note - Kyra Phipps PCT - 01/04/2020 7:51 PM CDTAllegiance ETA 1 hr. 15 minutes D Nurse Note - Viktoria Verma RN - 01/04/2020 7:02 PM CDTPatient provided juice and crackers per provider ok. D Nurse Note - Viktoria Verma RN - 01/04/2020 6:43 PM CDTDaughter at bedside speaking with provider in regards to plan of care and testing results. D Nurse Note - Gagan Lamb - 01/04/2020 2:50 PM CDTFamily member created password to obtain updates over the telephone. Password: "Eder" Family contact: Francesca Morris documented in this encounter Plan of Treatment Name Type Priority Associated Diagnoses Date/Ti me URINE CULTURE LAB STAT Episode of heavy vaginal 4:53 PM bleeding CDT MRSA / MSSA Screen by LAB Routine 2019 6:08 AM PCR, Nares CDT PAP Smear-Liquid Based LAB Routine 01/04 12:27 PM CDT HIGH RISK HPV-THIN LAB Routine 0 12:27 PM PREP CDT SURGICAL PATHOLOGY LAB Routine 0 12:27 PM EXAM CDT MOD BARIUM SWALLOW, IMAGING Routine Dysphagia, unspecifie d 01/05/2020 4:24 PM (COOKIE) type CDT LAB ONLY PAP LAB Routine 01/05/2020 2:4 4 PM SMEAR-LIQUID BASED CDT CT THORAX W CONTRAST IMAGING STAT Abdominal mass, 12/08 6:34 PM unspecified abdominal CDT location Mass of pelvis Pleural effusion Name Type Priority Associated Diagnoses Order S chedule URINE CULTURE LAB Routine Episode of heavy ONCE for 1 Occurrences vaginal bleeding starting until 0 MRSA / MSSA Screen by LAB Routine ONCE f or 1 Occurrences PCR, Nares starting 2019 until 0 PAP Smear-Liquid Based LAB Routine ONCE for 1 Occurrences starting 2019 until 0, 1 completed HIGH RISK HPV-THIN LAB Routine ONCE for 1 Occurrences PREP starting 2019 until 0 SURGICAL PATHOLOGY LAB Routine ONCE for 1 Occurrences EXAM starting 2019 until 0, 1 completed BASIC METABOLIC PANEL LAB Routine ONCE f or 1 Occurrences (NA, K, CL, CO2, starting GLUCOSE, BUN, until 01/05/20 20 CREATININE, CA) MOD BARIUM SWALLOW, IMAGING Routine Dysphagia, unspecifie d ONCE for 1 Occurrences (COOKIE) type starting 2019 until 0 LAB ONLY PAP LAB Routine ONCE for 1 Occu rrences SMEAR-LIQUID BASED starting 01/05/[address] THORAX W CONTRAST IMAGING STAT Abdominal mass, ONCE for 1 Occurrences unspecified abdominal starti ng 01/05/2020 location until 01/05/2020 Mass of pelvis Pleural effusion Health Maintenance Due Date Last Done Comments HEPATITIS C (HCV) SCREEN 1945 Depression Screening 1959 DTaP,Tdap,and Td Vaccines (1 - Tdap) 1966 Breast Cancer Screening (MAMMOGRAM) 1987 COLON CANCER SCREENING ANNUAL FIT/FOBT 1997 COLON CANCER SCREENING FIT DNA EVERY 3 YEARS 1997 COLON CANCER SCREENING SIGMOIDOSCOPY EVERY 5 YEARS 1997 COLONOSCOPY 1997 Colorectal Cancer Screening 1997 Zoster Recombinant Vaccine (SHINGRIX) (1 of 2) 1997 Medicare Wellness Visit 2012 Osteoporosis Screening 2012 PNEUMOCOCCAL VACCINES 65+ (1 of 1 - PPSV23) 2012 INFLUENZA VACCINE (#1) 2019 documented as of this encounter Procedures Procedure Name Priority Date/Time Associated Comments Diagnosis COVID-19 (ID NOW RAPID STAT 01/04/2020 7:02 Episode of hea vy Results for this TESTING) PM CDT vaginal bleeding procedure are in Abdominal pain, the results unspecified section. abdominal locati on Abdominal mass, unspecified abdominal location CT ABDOMEN PELVIS W STAT 01/04/2020 5:14 Episode of heavy Results for this CONTRAST PM CDT vaginal bleeding procedure are in Abdominal pain, the results unspecified section. abdominal location URINALYSIS STAT 01/04/2020 4:53 Episode of heavy Results for this PM CDT vaginal bleeding procedure a re in the results section. CBC WITH DIFF STAT 01/04/2020 3:03 Episode of heavy Result s for this PM CDT vaginal bleeding procedure a re in the results section. BASIC METABOLIC PANEL STAT 01/04/2020 3:03 Episode of heav y Results for this (NA, K, CL, CO2, PM CDT vaginal bleeding procedu re are in GLUCOSE, BUN, the results CREATININE, CA) section. ALANINE AMINO Add-on 01/04/2020 3:03 Results fo r this TRANSFERASE(SGPT PM CDT procedure a re in the results section. ALKALINE PHOSPHATASE, Add-on 01/04/2020 3:03 Re sults for this TOTAL PM CDT procedure are i n the results section. SGOT (ASPARTATE AMINO Add-on 01/04/2020 3:03 Re sults for this TRANSFER) PM CDT procedure are i n the results section. EMERGENCY SERVICES Routine 01/04/2020 12:01 AGREEMENTS AND AM CDT AUTHORIZATIONS documented in this encounter Results COVID-19 (ID NOW RAPID TESTING) (01/04/2020 7:02 PM CDT) SARS-CoV-2 Rapid ID Not Detected Not Detected [facility] Specimen Swab - NASOPHARYNGEAL SWAB Narrative Performed At ID NOW COVID-19 Assay is an isothermal nucleic [facility] acid amplification test intended for the qualitative detection of nucleic acid from SARS-CoV-2 viral RNA in nasopharyngeal (ELECTRIC BATH ATTENDANT) specimens. It is used under Emergency Use Authorization (EUA) by FDA. The limit of detection (LOD) of the assay is 125 Genome Equivalents/mL. A positive result is indicative of the presence of SARS-CoV-2 RNA. Clinical correlation with patient history and other diagnostic information is necessary to determine patient infection status. A negative (Not Detected) result does not preclude SARS-CoV-2 infection. In patients with clinical symptoms and other tests that are consistent with SARS-CoV-2 infection, negative results should be treated as presumptive negative and a new specimen should be tested with alternative PCR molecular test. Invalid: Please collect a new specimen for repeat patient testing if clinically indicated. Performing Organization Address City/State/Zipcode Phone Number [facility] CLIA: [id number] [place] [address] ABDOMEN PELVIS W CONTRAST (01/04/2020 5:14 PM CDT) Specimen Impressions Performed At PACS/VR/DOSE 1. Large heterogenous endometrial cavi ty mass highly concerning for endometrial carcinoma. Soft tissue implants in the rec touterine space are concerning for extrauterine invasion. 2. Findings of peritoneal carcinomatos is with numerous implants in the peritoneal cavity and wall. Trace ascites. Numerous me senteric and pelvic lymph nodes concerning for metastasis. 3. Soft tissue density mass in the lef t 10th costovertebral junction invading the left lamina compatible with metastasis. N o extension into the spinal canal is identified. 4. Moderate left pleural effusion and atelectasis of the left lower lobe. Preliminary Report Dictated by Resident: Tino Jimenez MD., have reviewe d this study and agree with the above report. Narrative Performed At EXAM: CT ABDOMEN AND PELVIS WITH CONTRAS T PACS/VR/DOSE HISTORY: 74-year-old female with "abdomi nal pain, acute, generalized". COMPARISON: None. DOSE: 579mGycm. TECHNIQUE AND FINDINGS: Contiguous axial imaging from the level of the lung bases through the pubic symphysis was pe rformed after the uncomplicated administration of 120 cc of intravenous Omnipaque contrast. Coronal and sagittal reconstructions were obtained. Auto mA and/or iterative reconstruction were used to reduce radia tion dose. FINDINGS: LOWER THORAX: Moderate volume left pleural effusion wi th atelectasis of the left lower lobe. No cardiomegaly. LIVER: No focal hepatic lesions. Multiple soft tissue density implant along the hepatic capsule is seen, described b elow. Trace perihepatic fluid is seen. GALLBLADDER AND BILIARY TREE: No biliary ductal dilati on. No gallbladder wall thickening. SPLEEN: No splenomegaly. PANCREAS: No ductal dilation or mass. ADRENAL GLANDS: No adrenal nodule. KIDNEYS: Symmetric enhancement. No hydro nephrosis, stones, or mass. PERITONEUM AND RETROPERITONEUM: Extensive peritoneal c arcinomatosis is seen with soft tissue implants along the liver (2:46, 2:36) , anterior peritoneal wall and peritoneal cavity (2:94, 2:71, 4:31). The largest anterior peritoneal implant measures 5.1 x 10.2 c m. Trace perihepatic fluid is seen. LYMPH NODES: Numerous prominent mesenteric lymph nodes are seen. Numerous bilateral enlarged iliac lymph nodes are present. GI TRACT: No dilation or wall thickening . Colonic diverticulosis without diverticulitis. Moderate stool burden is seen. PELVIS/BLADDER: A large heterogenous mas s is present in the endometrial cavity measuring approximately 6.5 x 6.9 x 8.7 cm (APxTVxCC)l. The right ovary is not visualized. The left ovary is prominent. A soft tissue density lesion is noted adjacent to the superior aspect of the ovary. Soft tissue implants are noted in the rectal uterine space (2:111). The urinary bladder is decompressed and unremarkable. VESSELS: Unremarkable. BONES AND SOFT TISSUES: 3.7 cm soft tissue density mas s involving the left 10th costovertebral junction extending into the lamina is present. Diffuse subcutaneous edema is present. Procedure Note [facility], Radiant Results Inft User - 2019 6:48 PM CDT EXAM: CT ABDOMEN AND PELVIS WITH CONTRAST HISTORY: 74-year-old female with "abdomi nal pain, acute, generalized". COMPARISON: None. DOSE: 579mGycm. TECHNIQUE AND FINDINGS: Contiguous axial imaging from the level of the lung bases through the pubic symphysis was pe rformed after the uncomplicated administration of 120 cc of intravenous Omnipaque contrast. Coronal and sagittal reconstructions were obtained. Auto mA and/or iterative reconstruction were used to reduce radia tion dose. FINDINGS: LOWER THORAX: Moderate volume left pleur al effusion with atelectasis of the left lower lobe. No cardiomegaly. LIVER: No focal hepatic lesions. Multipl e soft tissue density implant along the hepatic capsule is seen, described b pita. Trace perihepatic fluid is seen. GALLBLADDER AND BILIARY TREE: No biliary ductal dilation. No gallbladder wall thickening. SPLEEN: No splenomegaly. PANCREAS: No ductal dilation or mass. ADRENAL GLANDS: No adrenal nodule. KIDNEYS: Symmetric enhancement. No hydro nephrosis, stones, or mass. PERITONEUM AND RETROPERITONEUM: Extensiv e peritoneal carcinomatosis is seen with soft tissue implants along the live r (2:46, 2:36), anterior peritoneal wall and peritoneal cavity (2:94, 2:71, 4:31). The largest anterior peritoneal implant measures 5.1 x 10.2 c m. Trace perihepatic fluid is seen. LYMPH NODES: Numerous prominent mesenter ic lymph nodes are seen. Numerous bilateral enlarged iliac lymph nodes are present. GI TRACT: No dilation or wall thickening . Colonic diverticulosis without diverticulitis. Moderate stool burden is seen. PELVIS/BLADDER: A large heterogenous mas s is present in the endometrial cavity measuring approximately 6.5 x 6.9 x 8.7 cm (APxTVxCC)l. The right ovary is not visualized. The left ovary is prominent. A soft tissue density lesion is noted adjacent to the superior aspect of the ovary. Soft tissue implants are noted in the rectal uterine space (2:111). The urinary bladder is decompressed and unremarkable. VESSELS: Unremarkable. BONES AND SOFT TISSUES: 3.7 cm soft tiss ue density mass involving the left 10th costovertebral junction extending i nto the lamina is present. Diffuse subcutaneous edema is present. IMPRESSION 1. Large heterogenous endometrial cavit y mass highly concerning for endometrial carcinoma. Soft tissue impla nts in the rectouterine space are concerning for extrauterine invasion. 2. Findings of peritoneal carcinomatosi s with numerous implants in the peritoneal cavity and wall. Trace ascite s. Numerous mesenteric and pelvic lymph nodes concerning for metastasis. 3. Soft tissue density mass in the left 10th costovertebral junction invading the left lamina compatible with metastasis. No extension into the spinal canal is identified. 4. Moderate left pleural effusion and a telectasis of the left lower lobe. Preliminary Report Dictated by Resident: Guanakito Benitez I, Tino Hua MD., have reviewed this study and agree with the above report. Performing Organization Address City/[facility]/Zipcode Phone Number PACS/VR/DOSE URINALYSIS (01/04/2020 4:53 PM CDT) Pathologist Sig nature APPEARANCE Clear Clear [facility] COLOR Yellow Yellow [facility] PH 5.0 4.8 - 8.0 [facility] SP GRAVITY 1.026 1.003 - 1.030 [facility] GLU U QUAL Normal Normal [facility] BLOOD Negative Negative [facility] KETONES 5 mg/dL (A) Negative [facility] PROTEIN Negative Negative [facility] UROBILIN 2.0 mg/dL (A) Normal [facility] BILIRUBIN Negative Negative [facility] NITRITE Negative Negative [facility] LEUK BEL Negative Negative [facility] RBC/HPF <1 0 - 3 HPF [facility] WBC/HPF 2 0 - 5 HPF [facility] BACTERIA Negative Negative [facility] MUCOUS Moderate (A) Negative LPF [facility] SQ EPITH <1 HPF [facility] Specimen Urine - URINE, CATHETERIZED Performing Organization Address City/[facility]/Zipcode Phone Number [facility] CLIA: [id number] [place] [address] ALKALINE PHOSPHATASE, TOTAL (01/04/2020 3:03 PM CDT) Pathologist Sig nature ALK PHOS 86 34 - 122 U/L [facility] Specimen Blood - VENOUS Performing Organization Address [facility] Phone Number [facility] CLIA: [id number] [place] [address] ALANINE AMINO TRANSFERASE(SGPT (01/04/2020 3:03 PM CDT) Pathologist Sig nature ALTv 11 5 - 35 U/L [facility] Specimen Blood - VENOUS Performing Organization Address [facility] Phone Number [facility] CLIA: [id number] [place] [address] SGOT (ASPARTATE AMINO TRANSFER) (01/04/2020 3:03 PM CDT) Pathologist Sig formerly [facility] AST(SGOT) 35 13 - 40 U/L [facility] Specimen Blood - VENOUS Performing Organization Address [facility] Phone Number [facility] CLIA: [id number] [place] [address] BASIC METABOLIC PANEL (NA, K, CL, CO2, GLUCOSE, BUN, CREATININE, CA) (01/04/2020 3:03 PM CDT) Pathologist Sig nature NA 138 135 - 145 mmol/L [facility] K 4.0 3.5 - 5.0 mmol/L [facility] CL 108 98 - 108 mmol/L [facility] CO2 TOTAL 24 23 - 31 mmol/L [facility] AGAP 6 2 - 16 [facility] BUN 19 7 - 23 mg/dL [facility] GLUCOSE 101 70 - 110 mg/dL [facility] CREATININE 0.64 0.50 - 1.04 [facility] mg/dL [facility] CALCIUM 9.3 8.6 - 10.6 mg/dL [facility] eGFR Calculation 91.2 mL/min/1.73m2 [facility] (Non-) [facility] LABORATOR Y eGFR Calculation 110.6 mL/min/1.73m2 [facility] () [facility] Specimen Blood - VENOUS Narrative Performed At Association of Glomerular Filtration Rate (GFR) [facility] and Staging of Kidney Disease* + + +- + | GFR (mL/min/1.73 m2) | With Kidney Damage | Without Kidney Damage + + +- + | >90 | Stage one | Normal + + +- + | 60-89 | Stage two | Decreased GFR + + +- + | 30-59 | Stage three | Stage three + + +- + | 15-29 | Stage four | Stage four + + +- + | <15 (or dialysis) | Stage five | Stage five + + +- + *Each stage assumes the associated GFR level has been in effect for at least three months. Stages 1 to 5, with or without kidney disease, indicate chronic kidney disease. Notes: Determination of stages one and two (with eGFR >59mL/min/1.73 m2) requires estimation of kidney damage for at least three months as defined by structural or functional abnormalities of the kidney, manifested by either: Pathological abnormalities or Markers of kidney damage (including abnormalities in the composition of the blood or urine or abnormalities in imaging tests). Performing Organization Address City/State/Zipcode Phone Number [facility] CLIA: [id number] [place], [place] [id number] LAB[address] CBC WITH DIFF (01/04/2020 3:03 PM CDT) Pathologist [facility] nature WBC 8.17 4.30 - 11.10 [facility] 10*3/L [facility] RBC 4.43 3.93 - 5.25 [facility] 10*6/L [facility] HGB 10.8 (L) 11.6 - 15.0 [facility] g/dL [facility] HCT 36.1 35.7 - 45.2 % [facility] MCV 81.5 80.6 - 95.5 fL [facility] MCH 24.4 (L) 25.9 - 32.8 pg [facility] MCHC 29.9 (L) 31.6 - 35.1 [facility] g/dL [facility] RDW-SD 50.0 (H) 39.0 - 49.9 fL [facility] RDW-CV 17.1 (H) 12.0 - 15.5 % [facility] PLT 294 166 - 358 [facility] 10*3/L [facility] MPV 10.6 9.5 - 12.9 fL [facility] NRBC/100 WBC 0.0 0.0 - 10.0 /100 [facility] NRBC x10^3 <0.01 10*3/L [facility] GRAN MAT (NEUT) % 75.7 % [facility] IMM GRAN % 0.50 % [facility] LYMPH % 14.9 % [facility] MONO % 7.2 % [facility] EOS % 1.2 % [facility] BASO % 0.5 % [facility] GRAN MAT x10^3(ANC) 6.18 1.88 - 7.09 [facility] 10*3/uL [facility] IMM GRAN x10^3 0.04 0.00 - 0.06 [facility] 10*3/uL [facility] LYMPH x10^3 1.22 (L) 1.32 - 3.29 [facility] 10*3/uL [facility] MONO x10^3 0.59 0.33 - 0.92 [facility] 10*3/uL [facility] EOS x10^3 0.10 0.03 - 0.39 [facility] 10*3/uL [facility] BASO x10^3 0.04 0.01 - 0.07 [facility] 10*3/uL [facility] Specimen Blood - VENOUS Performing Organization Address City/State/Zipcode Phone Number [facility] CLIA: [id number] [place] [address] documented in this encounter Visit Diagnoses Diagnosis Abdominal mass, unspecified abdominal lo cation - Primary Episode of heavy vaginal bleeding Abdominal pain, unspecified abdominal lo cation Mass of pelvis Abdominal or pelvic swelling, mass or dio mp, unspecified site Pleural effusion Unspecified pleural effusion Dysphagia, unspecified type Vaginal bleeding Other specified noninflammatory disorder of vagina documented in this encounter Administered Medications Medication Order MAR Action Action Date Dose Rate Site acetaminophen (TYLENOL) tablet 650 mg 650 mg, Oral, Q6HPRN, Starting Sat at 0659, Until Discontinued, Routine, Pain (scale 4-6) docusate (COLACE) capsule 100 mg Given 01/05/2020 9:18 AM CDT 100 mg 100 mg, Oral, Q12H, First dose on Sat01/05/20 at 0800, Until Discontinued, Routine lactated ringers IV infusion New Bag 01/05/2020 3:06 AM CDT 1,000 mL 42 mL/hr 1,000 mL at 42 mL/hr, 1,000 mL, IV Infusion, CONTINUOUS, Starting Sat01/05/20 at 0215, Until Discontinued, Routine sennosides (SENOKOT) tablet 8.6 mg Given 01/05/2020 9:18 AM CDT 8.6 mg 8.6 mg, Oral, DAILY, First dose on Sat01/05/20 at 0900, Until Discontinued, Routine Medication Order MAR Action Action Date Dose Rate Site acetaminophen (TYLENOL) tablet Given 01/04/2020 8:55 PM CDT 650 mg 650 mg 650 mg, Oral, ONCE, 1 dose, Sat01/04/20 at 2200, Routine barium sulfate (LIQUID E-Z PAQUE) 60 % (w/v) Given 4:30 PM CDT 340 g oral suspension 340 g 340 g, Oral, ONCE, 1 dose, Sat01/05/20 at 1630, Routine barium sulfate-NO CHARGE- (VARIBAR NECTOR) 40 Given 5:30 PM CDT 10 mL % (w/v) oral suspension 10 mL 10 mL, Oral, ONCE, 1 dose, Sat01/05/20 at 1730, Routine barium sulfate-NO CHARGE- Given by Provider 01/05/2020 5:30 PM CDT 1 0 mL (VARIBAR PUDDING) 40 % (w/v), 30% (w/w) oral paste 10 mL 10 mL, Oral, ONCE, 1 dose, [facility] 01/05/20 at 1730, Routine HYDROcodone-acetaminophen (NORCO 5) 5-325 Given 2019 8:55 PM CDT 1 tablet mg tablet 1 tablet 1 tablet, Oral, ONCE, 1 dose, 01/04/20 at 2200, MACIEJ HYDROcodone-acetaminophen (NORCO 5) 5-325 Given 2019 2:51 AM CDT 1 tablet mg tablet 1 tablet 1 tablet, Oral, Q4HPRN, Starting Sat01/05/20 at 0201, Until Sat01/05/20 at 0659, Routine, Pain (scale 7-10) iohexol (OMNIPAQUE 350 BULK-150 mL) Given 01/04/2020 5:30 PM CD T 120 mL injection 120 mL 120 mL, Intravenous, ONCE, 1 dose, 01/04/20 at 1730, Routine iohexol (OMNIPAQUE 350 BULK-75 mL) injection Given 6:25 PM CDT 80 mL 80 mL 80 mL, Intravenous, ONCE, 1 dose, 01/05/20 at 1845, Routine documented in this encounter Additional Health Concerns Infection Onset Date Last Indicated Resolved Time COVID-19 Rule Out 01/04/2020 01/04/2020 01/04/2020 7: 40 PM CDT documented as of this encounter Insurance Payer Benefit Plan / Subscriber ID Effective Phone Address T ype Group Dates MEDICARE MEDICARE PART A [id number] 2012-Pres [phone] [address] Medicare & B ent [id number] DARI VAZQUEZ [phone] BCBS OF BCBS [id number] 2012-Pres [phone] O [facility] TRADITIONAL ent [phone] [place] [address] documented as of this encounter
--- OUTSIDE RECORDS SUMMARY | 2020-01-14 17:01 | XMS REPORT | Summary of Care ---
:1945 Author Organization [facility] [place] Address [address] [place] [address]- Encounter HQ Encntr_alias(FIN) [id number] Date(s): 11/13/19 - 11/14/19 [facility] [address] [place] [address]- [phone] Vital Signs No data available for this section Problem List Condition Effective Dates Status Health Status Informant LAMBERTO positive(Confirmed) Active Trouble walking(Confirmed) Resolved Peripheral neuropathy(Confirmed) Active Primary lateral scleroses(Confirmed) Active Simple obesity(Confirmed) Active Myelopathy(Confirmed) Active Allergies, Adverse Reactions, Alerts Substance Reaction Severity Status aspirin Active Medications No data available for this section Results No data available for this section Immunizations No data available for this section Procedures Procedure Date Related Diagnosis Body Site Status Transfusion of stem cells Co mpleted Social History Social History Type Response Alcohol Current, Frequency: 1-2 time s per year. Employment/School 1, 2 Smoking Status Never smoker; Exposure to To bacco Smoke None; Cigarette Smoking Last 365 Days No; Reg Smoking Cessation Counseling No entered on: 08/07/19 Efrain TREJO [employer] TABBY Srivastava release information to Assessment and Plan No data available for this section
--- OUTSIDE RECORDS SUMMARY | 2020-01-14 17:01 | XMS REPORT | Summary of Care ---
:1945 Author Organization [facility] - [address] [address] Care Team Providers Name Role Phone Mikael Dominguez Primary Care Provider Reason for Visit Reason Comments Results Encounter Details Date Type Department Care Team Description 01/06/2020 Telephone [facility] Women's Jason Mcgrath MD Results [facility] [place] [address], [address] [place] [address] [phone] [place] [address] Allergies Active Allergy Reactions Severity Noted Date Comments Aspirin Anaphylaxis 01/04/2020 documented as of this encounter (statuses as of 01/06/2020) Medications Medication Sig Dispensed Refills Start Date End Date Status riluzole 50 mg tablet Take 50 mg by 0 Active mouth every 12 (twelve) hours. documented as of this encounter (statuses as of 01/06/2020) Active Problems Problem Noted Date Vaginal bleeding 01/05/2020 documented as of this encounter (statuses as of 01/06/2020) Social History Tobacco Use Types Packs/Day Years Used Date Never Assessed Sex Assigned at Date Recorded Not on file COVID-19 Exposure Response Date Recorded In the last month, have you been in contact with No / Unsure 01/04/2020 2:48 PM CDT someone who was confirmed or suspected to have Coronavirus / COVID-19? documented as of this encounter Last Filed Vital Signs Not on filedocumented in this encounter Miscellaneous Notes Telephone Encounter - Jason Mcgrath MD - 01/06/2020 10:19 AM CDTPatient called and ID'ed by name and . Informed her and her of CT results of a PE. [facility] They voiced understanding and are coming. Plan -direct admit to the floor for IV heparin -ask heme if spiral CT is needed -discuss with arterial embalmer onc and possibly transfer after admission -endometrial biopsy was done yesterday and path is pending Jason Mcgrath MD 01/06/2020 10:22 AM documented in this encounter Plan of Treatment Health Maintenance Due Date Last Done Comments [...] (#1) 2019 documented as of this encounter Results Not on filedocumented in this encounter Insurance Payer Benefit Plan / Subscriber ID Effective Phone Address T e Group Dates MEDICARE MEDICARE PART A [id number] 2012-Pres [phone] [address] [employer] Medicare & B ent [phone] DARI VAZQUEZ [id number] BCBS OF BCBS [id number] 2012-Pres [phone] O [facility] TRADITIONAL ent [phone] [place] [address] documented as of this encounter
--- OUTSIDE RECORDS SUMMARY | 2020-01-14 17:01 | XMS REPORT | Continuity of Care Document ---
:[address] [facility] t Address [address] [place] [address] Care Team Providers Name Role Phone SULLY Primary Care Physician Unavailable SYSTEM, NOT IN Attending Clinician Unavailable Fiordaliza CHAPIN Attending Clinician FIORDALIZA Attending Clinician Unavailable SULLY Attending Clinician Unavailable Sully HATCH Attending Clinician Dipika SMITH Attending Clinician Unavailable Alcides HATCH Attending Clinician Fede SMITH Attending Clinician Unavailable Shanna RICHARDS Attending Clinician Scott FREITAS S Attending Clinician Mikael Rossi MD Attending Clinician Lilian HATCH Attending Clinician Trever Murray Attending Clinician Alcides HATCH Admitting Clinician Mikael Rossi MD Admitting Clinician Payers Payer Name Policy Type Policy Effective Date Expiration Date Sour ce Number MEDICAREMEDICARE PART [id number] 2012 MD Daniel Stevenson AND 00:00:00 [id number] 2012- [id number] [facility] [place] BLUE [id number] 2012 MD Florentin burgess [facility] 4 00:00:00 [id number] 13-PresentIndemnity MEDICAREMEDICARE PART [id number] 2012 James coleman A AND 00:00:00 [facility] [id number] 2012- [place] COMMERCIAL[place]BS [id number] 2012 [place] MED[place] 4 00:00:00 [facility] [id number] -PresentComm ercial Problems Condition Condition Condition Status Onset Resolution Last Treating Co mments Source Name Details Category Date Date Treatment Clinician Date 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 006 Russ o of of 00:00: n endometriu endometriu 00 m m Difficulty Problem Resolve 2019-12-13 Memoria walking d 00:26:11 l (finding) [place] Difficulty walking (finding) Resolved Problem 12/13/2019 [facility] Simple Problem Active 2019-12-13 Memor ia obesity 00:26:11 l (disorder) Simple Herm krystle obesity (disorder) Active Problem 12/13/2019 [facility] 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:26: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 Spinal Gagan n (disorder) cord disorder (disorder) Active Problem 12/13/2019 [facility] 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 Gamaliel (finding) Anti-nucle ar factor positive (finding) Active Problem 12/13/2019 [facility] Peripheral Problem Active 2019-12-13 M emoria nerve 00:26:11 l disease [place] (disorder) Peripheral nerve disease (disorder) Active Problem 12/13/2019 [facility] 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 Primary Herm krystle (disorder) lateral sclerosis (disorder) Active Problem 12/13/2019 [facility] Allergies, Adverse Reactions, Alerts Allergy Allergy Status Severity Reaction(s) Onset Inactive Treating Comm ents Source Name Type Date Date Clinician Aspirin Propensi Active Swelling [place] on ty to 09-28 Methodi adverse 00:00: st reaction 00 s to drug aspirin aspirin Active Memoria l Gamaliel Social History Social Habit Start Date Stop Date Quantity Comments Source Sex Assigned At MD [place] on Exposure to Not sure MD Sanchez SARS-CoV-2 (event) Tobacco use and 2019-09-29 2019-09-29 Never used Sigifredo Genao ethodist exposure 00:00:00 00:00:00 Alcohol intake 2019-09-29 2019-09-29 Current drinker [place] [facility] 00:00:00 00:00:00 of alcohol (finding) Alcohol Comment 2019-09-29 2019-09-29 very little Sigifredo Muñiz 00:00:00 00:00:00 Social History 2019-01-20 2019-01-20 Lonnie Davis ermkrystle 20:54:34 20:54:34 Smoking Status Start Date Stop Date Source Never smoker Sigifredo warner Medications Ordered Filled Start Stop Current Ordering Indication Dosage Frequency Signature Comments Components Source Medication Medication Date Date Medication? Clinician (SIG) Name Name baclofen 2018-04 Yes 10 mg = 1 M emoria mg oral 0-15 tab, PO, l tablet 21:53: BID, # 60 Gagan n 00 tab, 3 Refill(s), Pharmacy: [place] [id number] baclofen 2018-04 No 10 mg = 1 M emoria mg oral 0-15 tab, PO, l tablet 21:48: BID, 0 [place] 00 Refill(s) Vital Signs Vital Name Observation Time Observation Value Comments Source Body temperature 2020-01-12 19:13:00 37.28 Nancy MD Elva boss Systolic blood 2019-09-29 10:51:00 126 mm[Hg] [place] [facility] pressure Diastolic blood 2019-09-29 10:51:00 68 mm[Hg] [place] [facility] pressure Heart rate 2019-09-29 10:51:00 89 /min Mei [facility] Body height 2019-09-29 10:51:00 170.2 cm Mei [facility] Body weight 2019-09-29 10:51:00 79.379 kg Mei [facility] BMI 2019-09-29 10:51:00 27.41 kg/m2 Mei [facility] Systolic (mm Hg) 2019-05-21 19:17:00 Reed rial Gamaliel Diastolic (mm Hg) 2019-05-21 19:17:00 Mem orial Gamaliel Heart Rate 2019-05-21 19:17:00 [facility] Gamaliel Respitory Rate 2019-05-21 19:17:00 Vaniori al Gamaliel Height 2019-05-21 19:17:00 [facility] 2019-05-21 19:17:00 [facility] Gamaliel BMI Calculated 2019-05-21 19:17:00 Memori al [place]al[place] Systolic (mm Hg) 2019-04-09 15:57:00 Reed rial Gamaliel Diastolic (mm Hg) 2019-04-09 15:57:00 Mem orial [place] Heart Rate 2019-04-09 15:57:00 [facility] Gamaliel Respitory Rate 2019-04-09 15:57:00 Memori al Gamaliel Height 2019-04-09 15:57:00 167.64 cm [facility] Gam[place]iel Weight 2019-04-09 15:57:00 [facility] [place] BMI Calculated 2019-04-09 15:57:00 Memori al [place] Systolic (mm Hg) 2019-02-17 17:53:00 Reed rial [place] Diastolic (mm Hg) 2019-02-17 17:53:00 Mem orial Gamaliel Heart Rate 2019-02-17 17:53:00 [facility] [place] Respitory Rate 2019-02-17 17:53:00 Memori al [place]aliel Height 2019-02-17 17:53:00 167.64 cm [facility] Gamaliel Weight 2019-02-17 17:53:00 [facility] Gamaliel BMI Calculated 2019-02-17 17:53:00 Memori al [place] Systolic (mm Hg) 2019-01-20 20:50:00 Reed rial [place] Diastolic (mm Hg) 2019-01-20 20:50:00 Mem orial [place] Heart Rate 2019-01-20 20:50:00 [facility] [place] Respitory Rate 2019-01-20 20:50:00 Memori al [place] Height 2019-01-20 20:50:00 167.64 cm [facility] [place] Weight 2019-01-20 20:50:00 [facility] [place] BMI Calculated 2019-01-20 20:50:00 Memori al [place] Procedures Procedure Date / Time Performed Performing Clinician Sourc e HC COVID19 AUTOMATED PCR 2020-01-12 19:24:00 Rosa Virk MD OSI CT CHEST 2020-01-05 21:36:39 Marques aMncera MD OSI BARIUM SWALLOW 2020-01-05 21:29:34 Marques Mancera MD on OSI CT ABDOMEN AND 2020-01-04 21:36:55 Marques Mancera MD on PELVIS MRI SPINE EXTERNAL STUDY 2019-04-22 13:22:38 Suzette Hinton Joel danny [facility] MRI SPINE EXTERNAL STUDY 2019-01-30 13:22:22 Suzette Hinton Joel danny [facility] MRI HEAD EXTERNAL STUDY 2019-01-30 13:21:34 Suzette Hinton [place] [facility] Transfusion of stem [facility] Her esquivel cells Plan of Care Planned Activity Planned Date Details Comments Source Future Scheduled 2019-11-07 INFLUENZA VACCINE Concetta lujan [facility] Test 00:00:00 [code = INFLUENZA VACCINE] Future Scheduled 2012 65+ PNEUMOCOCCAL Mei [facility] Test 00:00:00 VACCINE (1 of 1 - PPSV23) [code = 65+ PNEUMOCOCCAL VACCINE (1 of 1 - PPSV23)] Future Scheduled 1997 BREAST CANCER [facility] thodist Test 00:00:00 SCREENING [code = BREAST CANCER SCREENING] Future Scheduled 1997 COLONOSCOPY SCREENING [place] [facility] Test 00:00:00 [code = COLONOSCOPY SCREENING] Future Scheduled 1997 SHINGLES VACCINES (#1) H olman [facility] Test 00:00:00 [code = SHINGLES VACCINES (#1)] Encounters Start End Encounter Admission Attending Care Care Encounter Source Date/Time Date/Time Type Type Clinicians Facility Department ID 2020-01-12 Outpatient SYSTEM, LAW FOY [id number] 11:11:00 JESSICA lujan 2020-01-12 2020-01-12 Outpatient LAW MANCERA MDA [id number] 16:34:40 16:34:40 MARQUES lujan 2020-01-12 2020-01-12 Outpatient LAW MANCERA MDA [id number] 16:31:38 16:31:38 MARQUES lujan 2020-01-12 2020-01-12 Outpatient FIORDALIZALAW MDA [id number] 16:27:45 16:27:45 MARQUES lujan 2020-01-12 2020-01-12 Outpatient GILES VIRK MDA MDA [id number] 14:12:00 14:24:38 ROSA lujan 2020-01-12 2020-01-12 Outpatient LAW MANCERA MDA [id number] 00:00:00 00:00:00 MARQUES lujan 2020-01-12 2020-01-12 Outpatient LAW MANCERA MDA [id number] 00:00:00 00:00:00 MARQUES centeno le 2020-01-12 2020-01-12 Telephone [facility] [id number] 00:00:00 00:00:00 Jason Y HEALTH [id number] CLINICS [id number] 2020-01-08 2020-01-08 Transition Porfirio Mistryle [id number] 00:00:00 00:00:00 of Care Alexia Benjamin [id number] [place] [id number] 2020-01-06 2020-01-07 [facility] Hiwot Mcgrath [id number] 14:13:00 18:00:00 Encounter Jason Klein [id number] [facility] [id number] 2020-01-06 2020-01-06 Telephone [facility] [id number] 00:00:00 00:00:00 Jason Y HEALTH [id number] CLINICS [id number] 2020-01-06 2020-01-06 Transition Nayeli Mistry [id number] 00:00:00 00:00:00 of Care Alexia Benjamin [id number] [place] [id number] [id number] 2020-01-04 2020-01-05 [facility] Shanna Jerome Mi 1.2.840. 114 [id number] 14:38:00 20:25:00 Bettina Chavezy 350.1.13.10 [facility] [id number] 2019-12-09 2019-12-10 Outpatient MHMISCHER MHMISCHER [id number] 09:59:21 23:59:59 04 2019-11-13 2019-11-14 Outpatient MHMISCHER MHMISCHER [id number] 10:20:23 23:59:59 2019-10-13 2019-10-14 Outpatient MHMISCHER MHMISCHER [id number] 08:45:41 23:59:59 2019-10-07 2019-10-08 Outpatient MHMISCHER MHMISCHER [id number] 10:06:01 23:59:59 2019-09-29 2019-09-29 Outpatient [facility] [id number] [place] 00:00:00 00:00:[address] 2019-09-29 2019-09-29 Outpatient [facility] [id number] [place] 00:00:00 00:00:[address] 2019-09-29 2019-09-29 Outpatient [facility] [id number] [place] 00:00:00 00:00:[address] 2019-09-29 2019-09-29 Outpatient [facility] [id number] [place] 00:00:00 00:00:[address] 2019-09-29 2019-09-29 Outpatient [facility] [id number] [place] 00:00:00 00:00:[address] 2019-09-29 2019-09-29 Outpatient [facility] [id number] [place] 00:00:00 00:00:[address] 2019-09-29 2019-09-29 Outpatient [facility] [id number] [place] 00:00:00 00:00:[address] 2019-09-25 2019-09-25 Outpatient Terri, MHMISCHER MHMISCHER [id number] 14:00:00 14:00:00 [place] 04 Trever 2019-08-07 2019-08-07 Outpatient Terri, MHMISCHER MHMISCHER [id number] 13:15:00 23:59:59 [place] 05 Trever 2019-05-21 2019-05-21 Outpatient Terri, MHMISCHER MHMISCHER [id number] 13:15:00 23:59:59 [place] 03 Trever 2019-04-27 2019-04-28 Outpatient MHMISCHER MHMISCHER [id number] 08:36:06 23:59:59 00 2019-04-09 2019-04-09 Outpatient RENUKA Murray [id number] 10:00:00 23:59:59 [place] 02 Trever 2019-02-17 2019-02-17 Outpatient RENUKA Murray [id number] 11:45:00 23:59:59 [place] 01 Trever 2019-01-20 2019-01-20 Outpatient RENUKA Murray [id number] 15:45:00 23:59:59 [place] 00 Trever Results Test Description Test Time Test Comments Results Result Sourc e Comments OSI CT Chest 2020-01-14 1. Left upper lobe MD Sanchez 16:38:45 segmental and right lower lobe subsegmental pulmonary emboli. No right heart strain.2. A 12 mm nodule in the right middle lobe is well-circumscribed. The best evidence for a primary lung malignancy rather than metastasis is the pleural tethering, which is rare for metastatic disease.3. Other lung nodules could be metastatic from known gynecologic malignancy.4. Suspicious left supraclavicular and bilateral internal mammary lymph nodes. The latter are more consistent with a gynecologic malignancy.5. Left posterior 10th rib soft tissue metastasis with erosion of adjacent vertebral body. Soft tissue in the neural foramina at T9-T10 and T10-T11 will affect the exiting nerve roots.5. Large left pleural effusion without definite pleural nodule. It may be related to the left rib metastasis.6. Upper abdominal ascites. Multiple liver and peritoneal implants. Please see separately reported CT abdomen pelvis 01/04/2020.Interface , Radiology Results In - 01/14/2020 11:40 AM CDTFULL RESULT:Examination: OSI CT CHEST on 01/05/2020 at 1818 hoursPresented for [facility] 01/14/2020Clinical History: Malignant neoplasm of endometriumIndicatio n: Abnormal imaging findings on outside study.Comparison: No other chest imaging available. OSF CT abdomen pelvis 01/04/2020 was reviewedTechnique: CT images of the chest performed following the administration of intravenous contrast.Findings: The thyroid gland is asymmetric and contains multiple small nodules measuring up to 11 mm.Left supraclavicular lymph nodes measure up to 9 mm short axis (images 17 and 18, series 3). There are small bilateral internal mammary lymph nodes (image 59). Mediastinal lymph nodes are not enlarged by CT size criteria. No hilar or axillary adenopathy.The lungs are emphysematous. Right middle lobe nodule is 12 mm (image 140, series 2). There is tethering of the fissure and the lateral pleural surface. A nodule in the right posterior recess is 9 mm (image 27, series 2). A nodular opacity in the anterior lingula (image 158) could represent focal atelectasis. There is also a 20 mm hypodense lesion within the partially collapsed left lower lobe (image 84, series 3). Mosaic attenuation is compatible with air trapping and small airway inflammation.A left pleural effusion is large volume. No definite pleural nodule appreciated.There is a 44 x 38 mm soft tissue metastasis arising from the left posterior 10th rib and eroding the left aspect of the adjacent T10 vertebral body (images 80-81, series 3). Soft tissue extends into the left neural foramina at T9-T10 and T10-T11 (images 78 and 87). There is no contact with the thecal sac.The heart is normal in size with small physiologic pericardial fluid. There is scattered punctate coronary artery calcification. The RV: LV ratio is less than 1.The thoracic aorta and main pulmonary trunk are normal in diameter. There is segmental pulmonary embolus in the left upper lobe (image 44, series 3) and a subsegmental embolus in the right lower lobe (image 75).The esophagus is nondistended and normal in course.Images through the upper abdomen are degraded by artifact from high density oral contrast material residual from barium swallow performed earlier the same day. Small upper abdominal ascites. There are implants along the liver capsule measuring 45 mm (image 116, series 3) and 38 mm (image 127). A lesion in the gastrohepatic space is 52 x 36 mm (image 114). Multiple nodules are seen in the mesentery and omentum.The spleen, adrenal glands, gallbladder and upper poles of the kidneys are within normal limits.IMPRESSION:1. Left upper lobe segmental and right lower lobe subsegmental pulmonary emboli. No right heart strain.2. A 12 mm nodule in the right middle lobe is well-circumscribed. The best evidence for a primary lung malignancy rather than metastasis is the pleural tethering, which is rare for metastatic disease.3. Other lung nodules could be metastatic from known gynecologic malignancy.4. Suspicious left supraclavicular and bilateral internal mammary lymph nodes. The latter are more consistent with a gynecologic malignancy.5. Left posterior 10th rib soft tissue metastasis with erosion of adjacent vertebral body. Soft tissue in the neural foramina at T9-T10 and T10-T11 will affect the exiting nerve roots.5. Large left pleural effusion without definite pleural nodule. It may be related to the left rib metastasis.6. Upper abdominal ascites. Multiple liver and peritoneal implants. Please see separately reported CT abdomen pelvis 01/04/2020. OSI CT Abdomen 2020-01-13 1. Locally advanced MD Daniel and Pelvis 17:59:02 tumor of the uterus extending beyond the uterus to involve both ovaries and abut the urinary bladder.2. There is extensive peritoneal disease in the abdomen and pelvis with deposits in the pelvis surrounding the rectosigmoid, without evidence of bowel obstruction at the present time.3. Mesenteric, retroperitoneal and pelvic adenopathy compatible with metastatic disease.4. Osseous metastatic disease to the left T10 costovertebral junction. Interface, Radiology Results In - 01/13/2020 1:01 PM CDTFULL RESULT:Examination: OSI CT ABDOMEN AND PELVIS on 01/04/2020 4:36 PMClinical History: Malignant neoplasm of endometriumIndicatio n: Concerned about an alternative diagnosis.Comparison : None.Technique: CT abdomen and pelvis obtained in outside institution with intravenous contrast on 12/27/2019Findings: There is a large left pleural effusion and associated atelectasis at the left lung base. There is metastatic destruction of the posterior left T10 rib at the costovertebral junction. There is a surrounding soft tissue mass that measures approximately 4.5 cm (series 2 image 5).There is extensive peritoneal carcinomatosis throughout the abdomen and pelvis. A transportation services representative lesion along the gastrohepatic ligament measures at least 5 cm (series 2 image 33). No intrahepatic metastases are seen. The gallbladder is present. There are peritoneal deposits in the gallbladder fossa. There is no biliary obstruction.Perisple jessica metastases are seen. The spleen is otherwise unremarkable. The pancreas and adrenal glands are unremarkable.The kidneys function without hydronephrosis.There is a large enhancing mass within the uterus with extension beyond the uterus into the surrounding peripelvic fat, compatible with the known primary tumor. Both ovaries are involved by tumor.The urinary bladder is inseparable from the uterine tumor. Peritoneal deposits are seen in the pelvis surrounding the rectosigmoid. There is presently no evidence of bowel obstruction.There are mesenteric, retroperitoneal and pelvic nodes, compatible with metastatic disease. A transportation services representative right external iliac node measures approximately 2.1 x 1.5 cm (series 2 image 114).IMPRESSION:1. 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 There is extensive peritoneal disease in the abdomen and pelvis with deposits in the pelvis surrounding the rectosigmoid, without evidence of bowel obstruction at the present time.3. Mesenteric, retroperitoneal and pelvic adenopathy compatible with metastatic disease.4. Osseous metastatic disease to the left T10 costovertebral junction. COVID-19 (SARS-CoV-2) PCR-Asymptomatic 2020-01-13 06:43:0 5 Test Item Value Reference Range Interpretation Comme nts COVID19 (SARS CoV-2) Not Detected Not Detected This te st is a qualitative Result (test code = reverse- transcriptase polymerase 26673-5) chain reaction (RT-PCR) developed for the [employer] Th[employer] system and intended fo r the detection of SARS CoV-2 RNA in human nasopharyngeal specimens from patients who me et COVID-19 clinical and/or epidemiological criteria. This assay has been approved by the FDA for use only under Emergency Use Authorization (EUA) in labora tories that have been CLIA-certi fied to perform moderate-comple xity and high-complexity tests. The performance sandro racteristics of this assay were verified by the Microbiology La boratory at [facility], CLIA Accreditation # : [id number] and CAP Accreditati on #: [id number]. Results must be interpreted within the context of all relevant clinical and la boratory findings and should not form the sole basis for a diagnosis or treatment decision. "Pres umptive Positive" results are due to partial amplification o f SARS-CoV-2 targets and ind icates low amounts of virus presen t in the specimen at or near the limit of detection. Regardless, ind ividuals with "Presumptive Po sitive" results should be manag ed per institutional g uidelines as individuals pos itive for SARS-CoV-2 viru s, including use of appropriate inf ection control protocols. Inte rnal controls are included to ass ess for possible amplification i nhibitors. If inhibition is d etected, testing is repeated and if inhibition is confirmed the s pecimen is resulted as "Invalid". W hen an "Invalid" result occur, i t is recommended to wait 3 days bef ore submitting a new specimen fo r testing if clinically kendra cated. COVID19 SARS Source SUPERINTENDENT MAINTENANCE Swab (test code = 09656) COVID19 SARS Indication New Patient (test code = 34511) [facility] Barium [id number] 21:29:40For comparison only. No interpretation requested.[facility] Spine External [id number] 13:22:48 This exam was not acquired at a [facility] facility and has not been interpreted by a [facility] Provider. The exam was imported into our imaging system.Sigifredo MuñizBRONSON [facility] Head External [id number] 13:22:04This exam was not acquired at a [facility] facility and has not been interpreted by a [facility] Provider. The exam was imported into our imaging system.Sigifredo Muñiz
--- OUTSIDE RECORDS SUMMARY | 2020-01-14 17:01 | XMS REPORT | Continuity of Care Document ---
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) Medications Medication Details Route Status Patient Ordering Order Source Instructions Provider Date baclofen 10 10 mg = 1 Active [facility] mg oral tab, PO, 019 Neuro tablet BID, # 60 tab, 3 Refill(s), Pharmacy: [place] [id number] baclofen 10 10 mg = 1 Inactive Mischer mg oral tab, PO, 019 Neuro tablet BID, 0 Refill(s) Allergies, Adverse Reactions, Alerts Substance Category Reaction Severity Reaction Status Date Comments S ource type Reported aspirin Assertion Drug Active Mische r allergy Neuro Immunizations No Data Provided for This Section Results No Data Provided for This Section Pathology Reports No Data Provided for This Section Diagnostic Reports No Data Provided for This Section Consultation Notes No Data Provided for This Section Discharge Summaries No Data Provided for This Section History and Physicals No Data Provided for This Section Vital Signs Vital Sign Value Date Comments Source Systolic (mm Hg) 139 05/21/2019 [facility] ro Diastolic (mm Hg) 69 05/21/2019 [facility] Heart Rate 103 05/21/2019 [facility] Respitory Rate 16 05/21/2019 [facility] Height 167.64 cm 05/21/2019 [facility] Weight 85.455 05/21/2019 [facility] BMI Calculated 30.41 05/21/2019 [facility] Systolic (mm Hg) 122 04/09/2019 [facility] Dexter ro Diastolic (mm Hg) 75 04/09/2019 [facility] Ne uro Heart Rate 97 04/09/2019 [facility] Neuro Respitory Rate 16 04/09/2019 [facility] Neuro Height 167.64 cm 04/09/2019 [facility] Neuro Weight 89.091 04/09/2019 [facility] Neuro BMI Calculated 31.7 04/09/2019 [facility] Neuro Systolic (mm Hg) 134 02/17/2019 [facility] Diastolic (mm Hg) 70 02/17/2019 [facility] Ne uro Heart Rate 79 02/17/2019 [facility] Neuro Respitory Rate 16 02/17/2019 [facility] Neuro Height 167.64 cm 02/17/2019 [facility] Neuro Weight 86.364 02/17/2019 [facility] Neuro BMI Calculated 30.73 02/17/2019 [facility] Neuro Systolic (mm Hg) 143 01/20/2019 [facility] ro Diastolic (mm Hg) 85 01/20/2019 [facility] Ne uro Heart Rate 104 01/20/2019 [facility] Neuro Respitory Rate 16 01/20/2019 [facility] Neuro Height 167.64 cm 01/20/2019 [facility] Neuro Weight 88.182 01/20/2019 [facility] Neuro BMI Calculated 31.38 01/20/2019 [facility] Neuro Encounters Location Location Encounter Encounter Reason Attending ADM [place] Source Details Type Number For Provider Date Date Visit [facility] Outpatient [id number] [place] 01/20 01/21 [facility] Neurology [facility] [place] Outpatient [id number] [place] 02[place]17 [facility] Gam[facility]iel MNA Outpatient [id number] [place] 02/17 02/18 [facility] Neurology [facility] [place] Outpatient [id number] [place] 04/09 [facility] Gamaliel MNA Outpatient [id number] [place] 04/09 04/10 [facility] Neurology [facility] /2019 [place] MNA Outside [id number] 04/27 04/29 [facility] Neurology Medical /2019 Neuro [place] Records Outpatient [id number] [place] 05/21 [facility] Gamaliel MNA Outpatient [id number] [place] 05/21 05/22 [facility] Neurology [facility] /2019 [place] Outpatient [id number] [place] 07/20 [facility] Outpatient [id number] [place] 08/06 [facility] MNA Outpatient [id number] [place] 08/06 08/07 [facility] Neurology [facility] /2019 [place] MNA Ambulatory [id number] [place] 09/24 09/24 [facility] Neurology [facility] [place] MNA Outside [id number] 10/06 10/08 [facility] Neurology Medical /2019 Neuro [place] Records MNA Outside [id number] 10/12 10/14 [facility] Neurology Medical [place] Records MNA Outside [id number] 11/12 11/14 [facility] Neurology Medical /2019 [place] Records MNA Outside [id number] 12/08 12/10 [facility] Neurology Medical /2019 [place] Records Procedures Procedure Code Date Perfomer Comments Source Transfusion of [id number] [place] Ne uro stem cells Assessment and Plan No Data Provided for This Section Plan of Care No Data Provided for This Section Social History Social History Date Source Social History TypeResponse 01/20/2019 [facility] Ne[facility] o Alcohol Current, Frequency: 1-2 times per year. Employment/School 1, 2 Smoking Status Never smoker; Exposure to Tobacco Smoke None; Cigarette Smoking Last 365 Days No; Reg Smoking Cessation Counseling No entered on: 08/07/19 [facility]REJO [employer] TABBY Srivastava release information to Family History No Data Provided for This Section Advance Directives No Data Provided for This Section Functional Status No Data Provided for This Section
--- OUTSIDE RECORDS SUMMARY | 2020-01-14 17:01 | XMS REPORT | Summary of Care ---
:1945 Author Organization [facility] Neurology [place] Address [address] [place] [address]- Encounter HQ Encntr_alias(FIN) [id number] Date(s): 10/13/19 - 10/14/19 [facility] [place] [address] [place] [address]- [phone] Vital Signs No data available for this [...]
--- OUTSIDE RECORDS SUMMARY | 2020-01-14 17:01 | XMS REPORT | Clinical Summary ---
:1945 Author Organization [facility] Address [address] [place] [address] Care Team Providers Name Role Phone Ginger Dominguez MD Primary Care Provider Allergies Active Allergy Reactions Severity Noted Date Comments Aspirin Swelling 09/29/2019 Medications No known medications Active Problems No known active problems Encounters Date Type Specialty Care Team Description 09/29/2019 Hospital Encounter Radiology Ernesto Quintana MD 09/29/2019 Hospital Encounter Radiology Ernesto Quintana MD 09/29/2019 Hospital Encounter Radiology Ernesto Quintana MD 09/29/2019 Hospital Encounter Radiology Ernesto Quintana MD 09/29/2019 Hospital Encounter Radiology Ernesto Quintana MD 09/29/2019 Hospital Encounter Radiology Ernesto Quintana MD 09/29/2019 Office Visit Neurology Ernesto Quintana MD Generalized weakness (Primary Dx); Paresthesia; Change in voice ; Motor neuron di sease (HCC) 09/29/2019 Travel 09/14/2019 Travel after 01/12/2019 Medical History Medical History Date Comments Spinal stenosis of lumbar region Social History Tobacco Use Types Packs/Day Years Used Date Never Smoker Smokeless Tobacco: Never Used Alcohol Use Drinks/Week oz/Week Comments Yes very little Sex Assigned at Date Recorded Not on file Last Filed Vital Signs Vital Sign Reading Time Taken Comments Blood Pressure 126/68 09/29/2019 10:51 AM CDT Pulse 89 09/29/2019 10:51 AM CDT Temperature - - Respiratory Rate - - Oxygen Saturation - - Inhaled Oxygen Concentration - - Weight 79.4 kg (175 lb) 09/29/2019 10:51 AM CDT Height 170.2 cm (5' 7") 09/29/2019 10:51 AM CDT Body Mass Index 27.41 09/29/2019 10:51 AM CDT Plan of Treatment Health Maintenance Due Date Last Done Comments BREAST CANCER SCREENING 1997 COLONOSCOPY SCREENING 1997 SHINGLES VACCINES (#1) 1997 65+ PNEUMOCOCCAL VACCINE (1 of 1 - PPSV23) 2012 INFLUENZA VACCINE 11/07/2019 Procedures Procedure Name Priority Date/Time Associated Diagnosis Comme nts MRI SPINE EXTERNAL Routine 04/22/2019 1:22 PM Re sults for this STUDY PROP ATTENDANT procedure are i n the results section. MRI SPINE EXTERNAL Routine 01/30/2019 1:22 PM Re sults for this STUDY CDT procedure are i n the results section. MRI HEAD EXTERNAL Routine 01/30/2019 1:21 PM Res ults for this STUDY CDT procedure are i n the results section. after 01/12/2019 Results MRI Spine External Study (04/22/2019 1:22 PM PROP ATTENDANT)Only the most recent of2 resultswithin the time period is included. Specimen Narrative Performed At This exam was not acquired at a Method[facility] t facility and has not been [facility] interpreted by a [facility] Provider. T he exam was imported into our imaging system. Performing Organization Address City/State/ZIP Code Phon e Number [facility] [address] [facility] [place] [address] MRI Head External Study (01/30/2019 1:21 PM CDT) Specimen Narrative Performed At This exam was not acquired at a Methodis t facility and has not been [facility] interpreted by a Taoist Provider. T he exam was imported into our imaging system. Performing Organization Address City/[facility]/ZIP [facility] Phon e Number [facility] [address] [facility] [place] [address] after 01/12/2019 Insurance Payer Benefit Plan / Subscriber ID Effective Phone Address T ype Group Dates MEDICARE MEDICARE PART A [id number] 2012-Pres [place] Medicare AND B ent BCBS COMMERCIAL BCBS MEDICARE [id number] 2012-Pres Commercial SUPPLEMENT ent Advance Directives For more information, please contact: [phone] Type Date Recorded Patient Tong Carrier Explanati on Advance Directives, Living Will and Medical Power of Cattle Sticker
--- OUTSIDE RECORDS SUMMARY | 2020-01-14 17:01 | XMS REPORT | Summary of Care ---
:1945 Author Organization [facility] Neurology [place] Address [address] [place] [address]- Encounter HQ Encntr_alias(FIN) [id number] Date(s): 12/09/19 - 12/10/19 [facility] [address] [place] [address]- [phone] Vital Signs No data available for this [...]
--- OUTSIDE RECORDS SUMMARY | 2020-01-14 17:02 | XMS REPORT | Summary of Care ---
:1945 Author Organization [facility] Address [address] [place] [address] Care Team Providers Name Role Phone Mikael Dominguez Primary Care Provider Reason for Visit Reason Comments Transition Of Care Encounter Details Date Type Department Care Team Description 01/06/2020 Transition of Care [facility] Alexia Mistry RN Transition Of Care [facility]- [address] [place] [phone] Allergies Active Allergy Reactions Severity Noted Date [...] this encounter Miscellaneous Notes Telephone Encounter - Alexia Mistry RN - 01/06/2020 10:53 AM CDT TRANSITIONAL CARE MANAGEMENT ASSESSMENT 01/06/2020 aErl Orellana [id number] CM explained to spouse reason for call as a JOSÉ MIGUEL follow up from recent admission. However, CM reviewed chart prior to calling pt and reiterated the importance of following up with Dr. Mcgrath's orders foradmission. Per spouse patient "wanted to get cleaned up a little bit before going". CM reinforced the need to proceed to hospital as soon as possible to begin PE treatment. Spouse verbalized understanding ans states they'll be leaving shortly for the hospital as directed. RENNY Cruz, RN-BC, CCRN Transition Director [facility] Nurse Clinician IV Transitions of Care Management Team Office: [phone] [email or web address] documented in this encounter Plan of Treatment [...] ype Group Dates MEDICARE MEDICARE PART A [id number] 2012-Pres [phone] [address] [place] Medicare & B ent [phone] DARI VAZQUEZ [id number] BCBS OF [facility] [id number] 2012-Pres [phone] [facility] TRADITIONAL ent [phone] [place] [address] documented as of this encounter
--- OUTSIDE RECORDS SUMMARY | 2020-01-14 17:02 | XMS REPORT | Summary of Care ---
:1945 Author Organization [facility] - [facility] Address [address] [place] [address] Care Team Providers Name Role Phone Mikael Dominguez Primary Care Provider Reason for Referral (Routine) Status Reason Specialty Diagnoses / Referred By Referred To Procedures Contact Contact New Request Occupational Diagnoses ALS (amyotrophic lateral sclerosis) Weakness generalized Nneka Hamilton Therapy Procedures CONSULT/REFERRAL OCCUPATIONAL THERAPY [address] [place] [phone] (Routine) Status Reason Specialty Diagnoses / Referred By Referred To Procedures Contact Contact New Request Physical Therapy Diagnoses PE (pulmonary thromboembolism) Uterine carcinosarcoma Dysarthria ALS (amyotrophic lateral sclerosis) Nneka Hamilton MD Procedures CONSULT/REFERRAL PHYSICAL THERAPY [address] [place] [phone] (Routine) Status Reason Specialty Diagnoses / Referred By Referred To Procedures Contact Contact New Request Speech-Language Diagnoses Dysarthria ALS (amyotrophic lateral sclerosis) Nneka Hamilton MD Pathologist Procedures CONSULT/REFERRAL SPEECH [address] [place] [phone] (STAT) Status Reason Specialty Diagnoses / Referred By Referred To Procedures Contact Contact New Request OG-GYNECOLOGIC Diagnoses PE (pulmonary thromboembolism) Uterine carcinosarcoma Vaginal bleeding Nneka Hamilton MD ONCOLOGY Procedures Discharge Follow-Up: Specialty Service OG-GYNECOLOGIC ONCOLOGY; 3-[address] [place] [phone] Reason for Visit Auth/Cert Status Reason Specialty Diagnoses / Referred By Referred To Procedures Contact Contact Geriatric Medicine Diagnoses Pulmonary Embolism [address] [place] [address] Fax: Encounter Details Date Type Department Care Team Description 01/06/2020 - Hospital Acute Care for the Jason Mcgrath MD PE (pulmonary 01/07/2020 Encounter Elderly ([facility] 11D) [address] thromboembolism) [address] [place] [id number] Allergies Active Allergy Reactions Severity Noted Date Comments Aspirin Anaphylaxis 01/04/2020 documented as of this encounter (statuses as of 01/07/2020) Medications Medication Sig Dispensed Refills Start Date End Date Status riluzole 50 mg Take 50 mg 0 Acti ve tablet by mouth every 12 (twelve) hours. apixaban 5 mg Take 2 tabs 60 tablet 2 01/07/2020 Act wendy tabletIndications: in the pulmonary morning and thromboembolism 2 tabs in the evening x6 days, then 1 tab AM and 1 tab PM. Indications: a clot in the lung apixaban 5 mg Take 2 tabs 60 tablet 2 01/07/2020 Dis continued tabletIndications: in the 0 ( Reorder) pulmonary morning and thromboembolism 2 tabs in the evening x6 days, then 1 tab in the morning and 1 tab in the evening. Indications: a clot in the lung documented as of this encounter (statuses as of 01/07/2020) Active Problems Problem Noted Date ALS (amyotrophic lateral sclerosis) 01/07/2020 Generalized weakness 01/07/2020 Dysarthria 01/07/2020 Dysphonia 01/07/2020 Impaired mobility and ADLs 01/07/2020 PE (pulmonary thromboembolism) 01/06/2020 Uterine carcinosarcoma 01/06/2020 Vaginal bleeding 01/05/2020 documented as of this encounter (statuses as of 01/07/2020) Social History Tobacco Use Types Packs/Day Years [...] Sign Reading Time Taken Comments Blood Pressure 130/75 01/07/2020 4:10 PM CDT Pulse 82 01/07/2020 4:10 PM CDT Temperature 37.1 C (98.8 F) 01/07/2020 4:10 PM CDT Respiratory Rate 18 01/07/2020 4:10 PM CDT Oxygen Saturation 98% 01/07/2020 4:10 PM CDT Inhaled Oxygen Concentration - - Weight 76 kg (167 lb 8.8 oz) 01/07/2020 3:00 PM CDT Height 170.2 cm (5' 7") 01/06/2020 2:40 PM CDT Body Mass Index 26.24 01/06/2020 2:40 PM CDT documented in this encounter Progress Notes Samia Cason, TELETYPE CLERK - 01/07/2020 4:31 PM CDT Care Management Discharge Disposition Note (DCDN) 5-2-1 Interventions: Disease specific education;Intensive medication reconciliation/management;Teachback;Clear discharge plan;Follow-up appointments 5-2-1 Providers: Physician;Head Piece Assembler/Police Surgeon;Nurse 5-2-1 Patient Capacity Improvements: Transportation arrangements Discharge Plan for ongoing care and services: Home Health () Patient Choice completed for referred services: Yes Discussed with patient/patients family involved in decision making: Patient or family caregiver understands, and agrees with discharge plan. Trever Orellana () [phone] Discharge Plan: Home Health () DME location: Other DME location: Durable Medical Equipment: Home Health location: [facility] [address] [place] [address] F: [phone] Discharge location(s): Home [address] [place] [address] Home Health location: [facility] [address] [place] [address] F: [phone] Community resources/referrals made or provided to patient: No Resources/Referrals: Mental Status: Alert & Oriented to Person,Place & Time Psychosocial issues and/or concerns resulting in patient being a high risk for re-admission: Manage ADL indepentdly: Yes Living Arrangement: Home: single story Other living arrangement: Address of living arrangement: [address] [place] [address] Funding Resources: Medicare A & B;Supplement/Secondary Has patient been referred to [facility]? No Nursing informed of discharge plan: Yes CHP referral sent? No CM medication request completed (if appropriate): No PCP: Yes Ginger Dominguez Transportation: Private Vehicle Trever Orellana () [phone] Prior authorization obtained for ambulance: Authorization number: CPT code: Discharge Medications Will the patient be able to obtain his medications? Yes Does the patient have transportation to to obtain the prescription medications? Yes Name of RN informed: Expected discharge date: 01/07/2020 Time: 1700 Additional Information: CM/SW Name & Contact number: Samia Cason LMSW Ph. [phone] The following information has been provided to the facility noted above: reason for the patient discharge or transfer; patients physical and psychosocial status; summary of care, treatment, servicesprovided to patient; and the patient progress toward goals. Samia Araiza LMSW - 01/07/2020 4:27 PM CDTSocial Worker Note SW sent referral to [facility] F: [phone]. Samia Cason LMSW Police Surgeon Care Management C: [phone] O: [phone] [email or web address] Manjit Loredo MBBS - 01/07/2020 4:24 PM CDTCONDITION CODE 44 Note After reviewing this case with the Head Piece Assembler it has been determined that this case doesnot meet medical necessity guidelines for an inpatient admission. I concur that this case should bechanged to outpatient, using Medicare Condition Code 44. Patient name: Earl Orellana Manjit Gotti MD, [facility] Physician Advisor Samia Araiza LMSW - 01/07/2020 3:25 PM CDTSocial Worker Note SW spoke with patient and Trever Orellana () [phone] regarding recs for bedside commode. Pt and Trever declined bedside commode stating as long as can go to the bathroom want to do that. Trever reported would like to speak with Medical Team. SW informed Trever would notify Medical Team. SW contacted Medical Team. SW informed Medical Team Trever Orellana () [phone] would like to speak with them. Medical Team informed recs for Home Health. JOO spoke with patient and Trever Orellana () [phone] regarding recs for Home Health. SW provided choices for Home Health. Patient chose [facility] F: [phone]. Earl Orellana [id number] 1945 RE: Care Management Patient Choice Notification Your doctor has recommended that you have post-hospital care services at discharge. You can choose the provider you want, regardless of its relationship with [facility]. We will contact any of the agencieswithin the [facility] network, or any other agency upon your request. Based on where you live and agency service areas, a list was generated from: Medicare.gov Disclosure: [facility] owns or is affiliated with the following facilities/agencies: [facility] (halfway and rehabilitation) If you are being referred to a home health agency or halfway facility, you will also be given a CMS Beneficiary Notification Letter (Cbslhbo-pd-Qrjh Profile Supplement) informing you about [facility]'s preferred partners. Patient Choice Acknowledgement I, Earl Orellana / authorized sales representative gas service, am aware that I have choice in selecting post-hospital care providers. The [facility] has given me a list of providers in the area available to me and/or my authorized sales representative gas service. My choice(s) are listed below: ? HH: [facility] F: [phone] Your signature on this form indicates that you have been given the following information: ? I have been advised of my right to choose the providers I wish ? If halfway facilities, long-term acute care hospitals, personal care homes, or home healthagencies were recommended, I was given a list of facilities/agencies in my geographic area that deliver these services or ? I have pre-selected or am an established client with a facility/agency and choose to initiate/continue services 01/07/20 Patient/Guardian/Responsible Alliance Party Signature Date Samia Cason LMSW Police Surgeon Care Management C: [phone] O: [phone] [email or web address] Samia Araiza LMSW - 01/07/2020 9:57 AM CDTCare Management Social Functional Assessment Patient Name: Earl Orellana Age: [age] year old Sex: female Previous admit date: N/A Current diagnosis and co-morbidities: Pulmonary Embolism Readmission Questions: Was patient discharged from any acute care hospital within the last 30 days: Yes Were all questions regarding previous illness/diagnosis answered prior to discharge: No If No, comment: Pt reported a CXR was completed right before pt was discharging. Pt stated medical team called next day and was informed to come back to [facility] for blood clots. Did you have any difficulties with your discharge instructions: No Were you able to go to your follow-up discharge appointments: Yes Any difficulties after discharge with medications: No Any difficulties after discharge with transportation: No Any difficulties after discharge with physical conditions, support, or other limitations?: No Did patient refuse services that were recommended on the previous admission: No Was patient non-compliant with the previously recommended treatment: No Social Functional Assessment: Primary language spoken/preferred: Bruneian Mental Status: Alert & Oriented to Person,Place & Time Information given by: Self Patient's support system: Spouse;Child Name and number of support system: Trever Orellana () [phone]; Francesca Morris (Dtr) [phone] Primary Magazine Hand: Self;Same as Support System Living Arrangement: Home: single story Address of living arrangement : [address] [place] [address] Persons living in home: Self;Spouse Names & numbers of persons living in home: Trever Orellana () [phone] Baseline functional status- ambulation: Requires minimal to moderate assistance Functional status-baseline personal care: Requires minimal to moderate assistance Baseline functional status- driving: Dependent Baseline functional status- grocery shopping: Dependent Functional status-baseline housekeeping: Dependent Functional status-baseline meal prep: Dependent Current functional status same as prior: No Current functional status- ambulation: Dependent Current functional status- personal care: Dependent Current functional status- driving: Dependent Current functional status- grocery shopping: Dependent Current functional status-house keeping: Dependent Current functional status- meal preparation: Dependent Do you have a PCP?: Yes Name of PCP: Ginger Dominguez Home Health Care Agency: No Provider Services: No DME Company: No Equipment: Walker;Grab bars;Shower bench;Wheelchair: Electric;Cane;Other Other equipment: WC Van Hemodialysis: No Community resources utilized: None Funding Resources: Medicare A & B;Supplement/Secondary Prescription coverage plan: Medicare Part D Pharmacy where meds are filled: Other Other pharmacy: [facility] in [place], [place] Anticipated services prior to disharge: Continue Medical Eval;Reassess prior to discharge Expected mode of discharge transportation: Same as support system Additional info required for discharge planning: Pending medical evaluation Recommended discharge plan: Home with new Home Health;Home;New placement SFA Complete: Social Functional Assessment complete: Yes Alcohol Use Screening (AUDIT-C) How often do you have a drink containing alcohol?: Never SCORE: 0 Did patient elect to have resources provided: No Role of Care Management explained. Pt resides in a house with her . Pt reported daughter lives nearby. Pt reportedly receives Outpt PT two times a wk. Any issues or concerns with obtaining/affording your medications at home: no. Are you or your support system able to black pickler medications at discharge: yes. Samia Cason LMSW Police Surgeon Care Management C: [phone] O: [phone] [email or web address] TCLisa munson OT - 01/07/2020 9:31 AM CDT1 0931 OCCUPATIONAL THERAPY NOTE: Consult received. [employer] chart reviewed. Per chart review, patient INR at 1.6. OT spoke with RN who isin agreement to wait for INR to reach minimum therapeutic range for evaluation. OT will hold and follow up as patient is medically appropriate for therapy services. Thank you. Nicole Falk OTR, MOT Pager: [phone] License: [id number] Hesham Robbins, PT - 01/07/2020 8:23 AM CDT Physical Therapy Note: 2nd follow up: PT INR at 1.6, awaiting to reach minimum therapeutic range. Patient and nurse Melindain agreement. Hesham Robbins PT, DPT Pager: [phone] Kimberly beckett OT - 01/06/2020 3:55 PM CDT01/06/2020 1555 Occupational Therapy Note: OT consult received, chart reviewed. Patient found to have acute PE, anticoagulation started 01/06/2020 at 1534 and coagulation labs pending. OT will hold session today and follow up tomorrow as patientappropriately anticoagulated for safe participation in activity. Thank you. ISIDORO Miller/Mikael, MSOT pager number: [phone] Hesham fontanez PT - 01/06/2020 3:47 PM CDT Physical Therapy Note: Patient's order received, EMR reviewed via [facility], patient arrived and settling in. Follow up tomorrow. Nurse Johana in the room with me. Hesham Robbins PT, DPT Pager: [phone] documented in this encounter H&P Notes Jason Mcgrath MD - 01/06/2020 2:29 PM CDT FRUIT COORDINATOR ADMISSION H&P NOTE Date of Service: 01/06/2020 Chief Complaint: Earl Orellana is a 74 year old with PMH of ALS and postmenopausal bleeding, who is being admitted today for PE in the left upper lobe found incidentally on CT scan on 01/04. She was admitted as a transfer from [facility] with acute postmenopausal bleeding and abdominal/pelvis mass on imaging on 01/03. Imaging showed concern for endometrial carcinoma with soft tissue implants in rectouterine space concerning for extrauterine invasion, peritoneal carcinomatosis with numerous implants in peritoneal cavity and wall, as well as numerous mesenteric and pelvic lymph nodes concerning for metastasis. She underwent endometrial biopsy and pap smear during her first admission Today she endorses mild SOB. She denies palpitations, chest pain, abdominal pain. She endorses minimal vaginal bleeding today. Sexual History: Social History Substance and Sexual Activity Sexual Activity Not on file Current Medications: Current Facility-Administered Medications Medication Dose Route Frequency Last Rate Last Dose apixaban (ELIQUIS) tablet 10 mg 10 mg Oral BID [id number] IV infusion 1,000 mL 1,000 mL IV Infusion CONTINUOUS Home Medications: Medications Prior to Admission Medication Sig Dispense Refill Last Dose riluzole 50 mg tablet Take 50 mg by mouth every 12 (twelve) hours. Allergies: Aspirin History: Past Medical History: Diagnosis Date ALS (amyotrophic lateral sclerosis) Surgical History: Past Surgical History: Procedure Laterality Date HYSTEROSCOPY WITH DILATATION AND CURETTAGE (SHX) OB History: OB History No obstetric history on file. ROS: Constitutional: negative Eyes: negative ENT/Mouth: negative Cardiovascular: negative Respiratory: shortness of breath Gastrointestinal:negative Genitourinary: abnormal bleeding Musculoskeletal: muscle weakness Skin/breast: negative Neurological: negative Psychiatric: negative Endocrine: negative Hemat/Lymph: negative Allergic/Immuno:none Physical Exam: There were no vitals taken for this visit. Constitutional: alert, no apparent distress, appearing age appropriate Respiratory: good inspiratory effort to inspections, lungs clear to auscultation Cardiovascular: regular rate and rhythm, no murmurs, gallops or rubs, no clubbing, cyanosis or edema,pulses equal Gastrointestinal: Abdomen soft, non-tender, nondistended, no masses,no hepatosplenomegaly, no hernia none Labs: CBC WBC (10*3/L) Date Value 01/04/2020 8.17 RBC (10*6/L) Date Value 01/04/2020 4.43 PLT (10*3/L) Date Value 01/04/2020 294 HGB (g/dL) Date Value 01/04/2020 10.8 (L) HCT (%) Date Value 01/04/2020 36.1 ALTv (U/L) Date Value 01/04/2020 11 AST(SGOT) (U/L) Date Value 01/04/2020 35 CREATININE (mg/dL) Date Value 01/04/2020 0.64 No results found for: LDHU No results found for: URICACID PROTEIN (no units) Date Value 01/04/2020 Negative PH (no units) Date Value 01/04/2020 5.0 GLU U QUAL (no units) Date Value 01/04/2020 Normal KETONES (no units) Date Value 01/04/2020 5 mg/dL (A) BILIRUBIN (no units) Date Value 01/04/2020 Negative No results found for: UBLOOD No results found for: UUROBILIN LEUK BEL (no units) Date Value 01/04/2020 Negative NITRITE (no units) Date Value 01/04/2020 Negative SP GRAVITY (no units) Date Value 01/04/2020 1.026 No results found for: T4 No results found for: TSH 01/03 CT Abdomen and Pelvic with Contrast IMAGING: EXAM: CT ABDOMEN AND PELVIS WITH CONTRAST HISTORY: 74-year-old female with "abdominal pain, acute, generalized". COMPARISON: None. FINDINGS: LOWER THORAX: Moderate volume left pleural effusion with atelectasis of the left lower lobe. No cardiomegaly. LIVER: No focal hepatic lesions. Multiple soft tissue density implant along the hepatic capsule is seen, described below. Trace perihepatic fluid is seen. GALLBLADDER AND BILIARY TREE: No biliary ductal dilation. No gallbladder wall thickening. SPLEEN: No splenomegaly. PANCREAS: No ductal dilation or mass. ADRENAL GLANDS: No adrenal nodule. KIDNEYS: Symmetric enhancement. No hydronephrosis, stones, or mass. PERITONEUM AND RETROPERITONEUM: Extensive peritoneal carcinomatosis is seen with soft tissue implants along the liver (2:46, 2:36), anterior peritoneal wall and peritoneal cavity (2:94, 2:71, 4:31). The largest anterior peritoneal implant measures 5.1 x 10.2 cm. Trace perihepatic fluid is seen. LYMPH NODES: Numerous prominent mesenteric lymph nodes are seen. Numerous bilateral enlarged iliac lymph nodes are present. GI TRACT: No dilation or wall thickening. Colonic diverticulosis without diverticulitis. Moderate stool burden is seen. PELVIS/BLADDER: A large heterogenous mass is present in the endometrial cavity measuring [...] SOFT TISSUES: 3.7 cm soft tissue density mass involving the left 10th costovertebral junction extending into the lamina is present. Diffuse subcutaneous edema is present. IMPRESSION 1. Large heterogenous endometrial cavity mass highly concerning for endometrial carcinoma. Soft tissue implants in the rectouterine space are concerning for extrauterine invasion. 2. Findings of peritoneal carcinomatosis with numerous implants in the peritoneal cavity and wall.Trace ascites. Numerous mesenteric and pelvic lymph nodes concerning for metastasis. 3. Soft tissue density mass in the left 10th costovertebral junction invading the left lamina compatible with metastasis. No extension into the spinal canal is identified. 4. Moderate left pleural effusion and atelectasis of the left lower lobe. 01/04 CT thorax w contrast: HISTORY: 74 years-old Female presenting with shortness of breath 74yo female with large pelvic mass concerning for malignancy. COMPARISON: None. TECHNIQUE: Helical CT was performed of the chest (lung apices to bases) using 80 mL Omnipaque 350 nonionic intravenous contrast, without complication. Images were reconstructed at 1.25 mm slice thickness. MIP and coronal & sagittal MPR images were generated and reviewed. (DFOV = 40.0 cm) FINDINGS: Lower neck/thyroid: Heterogeneous appearance of the gland with 1.2 cm thyroid nodule in the left inferior thyroid lobe and 1.3 cm in the right inferior thyroid lobe.. Lungs: Mild centrilobular emphysematous changes. Moderate sized left pleural effusion with internal density of approximately 40 Hounsfield units. There is underlying compressive atelectasis. A small focal nodular opacity measuring 0.8 cm noted in the right lower lobe. Central airway: Unremarkable. Pleura: No pleural effusion, thickening or pneumothorax. Thoracic aorta and great vessels: The normal three vessel branching pattern is identified off of the aortic arch. The aorta is normal in diameter. Pulmonary arteries: A concentric filling defect is noted in the left apicposterior segmental pulmonary arteries (2:91). No evidence of heart strain on nondedicated PE study. Heart and pericardium: Mild coronary arterial calcifications are present. Unremarkable cardiac morphology and pericardium. Lymph nodes: No enlarged thoracic lymph nodes. Mediastinum: Unremarkable. Thoracic spine and chest wall: 4.0 x 2.6 2:156, 603:126) homogenous soft tissue density seen in the left posterior mediastinum. The mass is located adjacent to T9-T10 vertebral body with osseous involvement and degradation of the T10 costovertebral junction. There is extrathoracic involvement at the level of T10. Additionally, there 6s invasion into into the left T10 neural neural foramen. Other Lines/Tubes/Devices/Hardware: None Visualized upper abdomen: Small hiatal hernia is noted. 6he visualized abdomen demonstrates contrast opacification of the visualized bowel, consistent with the recent modified barium swallow performed on 01/05/2020. Redemonstration of the peritoneal implants and lymphadenopathy which was better demonstrated on CT abdominal pelvis from 12/27/2019. Additionally, small amount of ascites in the visualized intra-abdominal cavity. IMPRESSION 1. Left posterior mediastinal mass with extrathoracic invasion into adjacent osseous involvement of the adjacent T10 vertebral and costovertebral junction. There is involvement of the T10 left neural foramen. These findings are consistent with metastatic process. 2. Acute pulmonary embolus in the left upper lobe. 3. Right lower lobe nodular opacity may also represent metastatic process or infectious process. 4. Moderate sized left pleural effusion with internal density concerning for malignant pleural effusion. An underlying infectious process or pulmonary infarct cannot be excluded. 5. Numerous implants in the in the visualized intra-abdominal cavity and wall with trace ascites and lymphadenopathy is concerning for metastatic process. Recommend follow-up report from CT abdomen pelvis 01/04/2020. 6. Heterogeneous thyroid gland with bilateral thyroid nodules. Correlation with prior or dedicated thyroid ultrasound can be obtained. The findings of this study, including pulmonary embolism and metastatic process, have been discussed with and acknowledged by Dr. Christy Kelly over the phone on 01/06/2020 at 940 with readback. 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 Pulmonary Embolism -Found on CT scan 01/04 incidentally -Patient endorses mild SOB, denies palpitations, chest pain -Plan for Apixaban 10 mg BID x7d then 5mg BID -Consult Heme/Onc for recommendations for discharge Postmenopausal bleeding - patient reports first episode 01/03, denies prior postmenopausal bleeding - last Pap >15 years ago, denies history of abnormal - CTAP with contrast 01/03: endometrial cavity mass concerning for endometrial carcinoma with soft tissue implants in rectouterine space concerning for extrauterine invasion, peritoneal carcinomatosis with numerous implants in peritoneal cavity and wall, as well as numerous mesenteric and pelvic lymph n odes concerning for metastasis - speculum exam on 01/03 admission limited due to patient intolerance of positioning. 10cc old blood in vaginal vault, cervix not visualized. - bimanual exam on 01/03 admission: cervix very anterior behind pubic bone. Uterus fixed, 18 cm in size. No discrete masses palpated -Embx showed carcinosarcoma ALS - speech issues started several months prior to admission - reports evaluated by 2 neurologists and neuromuscular specialist and told she likely has ALS - patient reports using walker, wheelchair at home - was taking Riluzole 50mg but discontinued per patient's wishes. Patient reports next Neurology appointment at the end of January but unsure if she will keep appointment -Has been seen by MANAGER CHEMICAL during 01/03 admission -Plan: Will consult PT, OT D/w Dr. Leticia Zheng MD documented in this encounter Consult Notes Paloma Hernandez - 01/07/2020 3:40 PM CDTAssociated Order(s): CONSULT PS PASTORAL CAREChaplain visited with the patient and her per consult. Empathic and reflective listening, support were provided. The patient said that she has a cancer diagnosis along with other medical issues. She said that he brother a couple days ago. Her said that his passing is a great loss to them both.They said that they attend [employer] in [place], and that their chaperon has visited. They also saidthat their children are coming to visit as well. The patient was tearful, and is relying on her sean and family. No further needs were mentioned. They were thankful for the visit. Coin Wrapping Machine Operator remains available to provide pastoral care if needed. Chaplain Astrid Hernandez [facility] Department of Pastoral Care Office: [phone] be, Addy T, PT - 01/07/2020 12:33 PM CDTAssociated Order(s): CONSULT ADULT PHYSICAL THERAPY Patient agreeable to working with physical therapy. Patient met Semi reclined in bed. Patient is seen in conjunction with Jennifer Falk OT. Patient is cleared by Dr. Kelly for therapy for therapy. PHYSICAL THERAPY EVALUATION Consult received, chart reviewed and evaluation complete this date. Patient is referred to PT for evaluation and treatment. Patient is a 74 year old female who presents to hospital for Pulmonary Embolism . Discharge Recommendations: Therapy Needs and Potential: Patient would benefit from continued physical therapy services to address: decline in bed mobility decline in transfers decline in gait and/or balance Patient demonstrates good potential to improve and meet therapy goals with further physical therapy services. Patient appears motivated to improve their functional mobility and return to their previous levelof function. Challenges to Home Transition: increased risk of falls Equipment recommendations: patient states that she has RW, 4ww and power wheel chair Current Functional Status and/or Treatment:Functional mobility training, Transfer training and Gait training Bed Mobility: Supine-sit: patient provided with mod assist with verbal cues. sitting at the edge of bed: patient provided with min to CGA with vebral cues assistance level varies. sit to supine: patient provide with max assist x 2 with verbal cues Transfers: Sit to stand: initially patient provided with mod assist with RW and patient states that she would like demonstrate how they transfer at home. patient and states that they have system they have in place Stand to sit: CGA using Rolling Walker and verbal cues for hand placement and technique Ambulation: Assisted patient with ambulation as follows: 15 feet using Rolling Walker and CGA. Patient ambulates with decreased foot clearance and decreased weight bearing noted on the heels Therapeutic exercise: instructed patient in the following: ankle pumps, heel slides, hip abduction/adduction After session, patient Semi reclined in bed. Call button provided. PLAN OF CARE: At least 2 times per week, once or twice a day (while in hospital) per patient's tolerance and medical needs. See below for complete details. Admit Date: 01/06/2020 Hospital Diagnosis:Pulmonary Embolism PT Diagnosis: Difficulty walking and Weakness Weight Bearing Precaution: WBAT General Precautions: PPE used:Gloves and Surgical mask, General, Fall, Bracing/Cast present or required:N/A PMH: Past Medical History: Diagnosis Date ALS (amyotrophic lateral sclerosis) PSH: Past Surgical History: Procedure Laterality Date HYSTEROSCOPY WITH DILATATION AND CURETTAGE (SHX) Prior Living Situation: lives with their spouse, in a single story house DME: Rolling Walker, Four wheeled walker with seat, Electric Wheel Chair Prior level of Mobility: was using 4ww in the house and recently started using power wheel chair Subjective: patient states that she like to more independent Patient/Family Goals: to get better Patient/Family verbalizes understanding of condition: Yes PAIN: patient c/o pain however did not rate pain COMMUNICATION Primary Language: Bruneian Able to Verbalize needs: Yes Vision:glasses Hearing:good; no issues reported ORIENTATION/COGNITION: Oriented to: person, place, date/time and situation Awake: Yes Alert: Yes Dizzy: No Follows Commands: Yes 1-Step Yes Multi-Step Yes Inconsistent: No NEUROLOGICAL Light Touch: within functional limits bilateral LE, Tone: normal BALANCE: Sitting: Static: Fair Dynamic: NT Standing: Static: Fair Dynamic: Poor RANGE OF MOTION: within functional limits bilateral LE, STRENGTH: 3+/5 (F+), bilateral knee, bilateral ankle 3/5 ENDURANCE: Fair, Room air SKIN INTEGRITY: defer to nursing notes , PROBLEM LIST: Decline in bed mobility, Decline in gait, Decline in transfers, Difficulty with stairs, Decreased strength, Decreased endurance and Decreased balance ASSESSMENT: Patient is a 74 year old female seen secondary to the above listed diagnosis. Patient would benefit from continued PT to address the above listed deficits to maximize independence and safety with functional mobility. Rehabilitation Potential: fair Goals: The following goals are to maximize independence and safety with functional mobility to eventually return to prior living situation and prior functional status. Upon discharge, patient and/or family will demonstrate the followin. Supine-sit: Modified independent 2. Sit to stand: Modified independent using RW Stand to sit: Modified independent using Rolling Walker 3. Modified independent with ambulation, Feet: 25 using least assistive device. 4 Modified independent with wheelchair propulsion and management of brakes. 5. Demonstrate or verbalize understanding of home exercise program in order to continue with their rehab on their own. Treatment Plan: Gait training, Therapeutic exercise, Transfer training, Balance training, Bed mobility training, Equipment needs assessment, Safety education, patient/caregiver education and Wheelchairmobility training PATIENT EDUCATION: Patient provided with preferred teaching of verbal information on role of PT, plan of care. Shows readiness to learn. Verbal instruction teaching provided. Individual verbalizes understanding of teaching provided. Total Time Tx Codes in Minutes: 23 min Total Treatment Time in Minutes: 49 min Addy Pace PT DPT Pager Number: [phone] Anne Loya - 01/07/2020 11:34 AM CDT Medical Nutrition Therapy- Consult Note: Reason For Consultation: banana loader for positive initial nutrition screen: Decreased Eating, Disease Severity, > 70 yrs Malnutrition Assessment: Nutritional Diagnosis: None SGA Rating: At Risk History of Present Illness: Earl Orellana is a 74 year [id number] with PMH of ALS and postmenopausal bleeding, who is being admitted today for PE in the left upper lobe found incidentally on CT scan on 01/04. She was admitted as a transfer from [facility] with acute postmenopausal bleeding and a bdominal/pelvis mass on imaging on 01/03. Imaging showed concern for endometrial carcinoma with soft tissue implants in rectouterine space concerning for extrauterine invasion, peritoneal carcinomatosiswith numerous implants in peritoneal cavity and wall, as well as numerous mesenteric and pelvic lymph nodes concerning for metastasis. She underwent endometrial biopsy and pap smear during her first admission Today she endorses mild SOB. She denies palpitations, chest pain, abdominal pain. She endorses minimal vaginal bleeding today. PMH/PSH: Past Medical History: Diagnosis Date ALS (amyotrophic lateral sclerosis) Past Surgical History: Procedure Laterality Date HYSTEROSCOPY WITH DILATATION AND CURETTAGE (SHX) PSH noted. GI and Nutrition Related Findings: Symptoms: N/A Difficulty: Patient has trouble swallowing- has been evaluated by speech and passed bed side swallowtest. Patient informs taking her time eating and small bites. GI tract alteration: N/A Alternative means of nutrition: N/A General: N/A Medications: I have reviewed the medications currently ordered in the EMR located under the medications andMAR tabs. Current medications include: Current Facility-Administered Medications: D5W-LR IV infusion 1,000 mL, 1,000 mL, IV Infusion, CONTINUOUS, Christy Kelly MD, Last Rate: 42 mL/hr at 01/07/20 0945 acetaminophen (TYLENOL) tablet 650 mg, 650 mg, Oral, Q6HPRN, Christy Kelly MD, 650 mg at 01/07/20 0112 apixaban (ELIQUIS) tablet 10 mg, 10 mg, Oral, Q12H ABX, Arnie Perez MD, 10 mg at 01/07/20 0356 Lab and Medical Test Results: NA (mmol/L) Date Value 01/04/2020 138 K (mmol/L) Date Value 01/04/2020 4.0 CALCIUM (mg/dL) Date Value 01/04/2020 9.3 CL (mmol/L) Date Value 01/04/2020 108 BUN (mg/dL) Date Value 01/04/2020 19 CREATININE (mg/dL) Date Value 01/04/2020 0.64 GLUCOSE (mg/dL) Date Value 01/04/2020 101 CO2 TOTAL (mmol/L) Date Value 01/04/2020 24 No results found for: ALB No results found for: TPRO No results found for: BILIT No results found for: BILIUNCON No results found for: BILICONJ ALTv (U/L) Date Value 01/04/2020 11 AST(SGOT) (U/L) Date Value 01/04/2020 35 ALK PHOS (U/L) Date Value 01/04/2020 86 Nutrition Assessment: Age: [age] year old Sex: female Ht: 170.2 cm / 5'7" Ht Readings from Last 3 Encounters: 01/06/20 1.702 m (5' 7") 01/04/20 1.702 m (5' 7") Current Wt: 76.2 kg/ 168 lb BMI: Body mass index is 26.24 kg/m. (Normal for Age) Weight History: Wt Readings from Last 10 Encounters: 01/07/20 76 kg (167 lb 8.8 oz) 01/05/20 77.5 kg (170 lb 12.8 oz) Inflammatory Markers: N/A Current Dietary Order(s): Regular Diet; Texture: Regular Regular Diet; Texture: Regular. EMR documented food allergies/intolerance/cultural preferences: No Documented Food Allergies Nutrition & Diet History: Patient informs her appetite and intake are improving but has been less than normal due to new medication regimen past 5 weeks that made her feel lethargic and lose her appetite. She is no longer on the medication. Denies any N/V/D/C or food allergies at time of visit. Patient also informs having difficulty swallowing sometimes from ALS and she takes her time eating very small bites which seems to help. Recommend continuing current medical nutrition therapy at this time. RD will continue to follow. Estimated Daily Nutritional Needs: Calories: 3869-4285 kcal/day = 25-30 kcal/kg current wt Protein: 20 % of kcal need/day = 95-114 g/day = 1.2-1.5 g/kg current wt Fluid: 4940-3093 mL/day or per MD; adjust per acute needs Nutrition Diagnosis: Difficulty swallowing related to ALS as evidenced by patient reports sometimes having trouble swallowing. Nutrition Plan of Care: Intervention(s): 1. Recommend continuing current Regular Diet 2. Recommend Ensure Enlive TID 3. Monitor BMP, intake and weight status daily Goal(s): 1. Patient will consume adequate calories and protein to meet >80% estimated daily needs. D/C Planning: Home on Regular Diet Nutrition Monitoring and Evaluation: A registered dietitian will f/u as indicated to report nutrition related information and to revise the recommended nutrition intervention(s); please call with questions or concerns, thank-you. Anne Morales RD, LD Clinical Dietitian RD Office: [phone] signed by Anne Morales at 01/07/2020 3:49 PM GAELTCLisa munson OT - 01/07/2020 11:12 AM CDTAssociated Order(s): CONSULT ADULT OCCUPATIONAL THERAPY OT GENERAL EVALUATION Consult received via [employer], EMR reviewed and evaluation completed 01/07/20 seen in conjunction with Marilyn, PT due to medical complexity. Patient referred to occupational therapy for evaluation and treatment secondary to PE. Patient agreeable to participate in occupational therapy. Discharge Recommendations: Therapy Needs and Potential:- Patient would benefit from continued skilled occupational therapy services to address: Decline in basic activities of daily living, Decline in instrumental activities of daily living, Decreased strength, Decreased range of motion and Decreased endurance - Patient demonstrates good potential to improve and meet therapy goals with further skilled occupational therapy services. - Patient appears motivated to improve their B/IADLs and return to their previous level of function. - Patient exhibits limited activity tolerance. - Patient able to follow commands: 1-step Yes, Multi-step Yes, Inconsistencies No Challenges to Home Transition:- Requires physical assistance for BADLS - Requires physical assistance for IADLS - Decreased safety awareness/judgement - Increased risk of falls Equipment Recommendations:Bedside commode, Long handled sponge and Long handled glass worker PLAN OF CARE: At least 2x/week Precautions: Weight bearing status: NA General: PPE Utilized: Gloves and Surgical mask and Fall Bracing: N/A Current Occupational Performance and/or Treatment: Feeding: SBA/Setup, patient completed lunch while seated in bed requiring assistance with opening ofall containers and packaging Grooming: Minimal assist, patient completed facial hygiene while seated on the EOB requiring assistance due to loss of balance posteriorly in sitting UB Dressing: Minimal assist, patient donned gown while semireclining in bed requiring assistance with pulling up around shouders LB Dressing: Dependent, patient unable to don bilateral socks while semireclining or seated on EOB. Patient required maximal assist with donning of pull up requiring assistance with threading of LEODAN LE and pulling up around waist while standing using rolling walker Toilet Transfer: Unable to assess at this time Toileting Hygiene: Maximal assist, patient required assistance with changing of diaper for pull up and management of feminine hygiene products along with clothing management Functional Mobility: Patient completed bed mobility of supine to EOB sitting with HOB elevated with moderate assist for lifting of trunk and lifting and guiding of LEODAN LE. Patient required tactile and verbal cueing for proper body mechanics and positioning. Patient reported spouse assist with bed mobility at home. Patient completed sit <> stand using rolling walker with moderate assist from EOBsitting. Patient ambulated a few steps around the EOB using The rolling walker with CGA requiring assistance with stability and steadying and requiring increased time. Patient/caregiver educated on: ADL training, Compensatory techniques/adaptive strategies, Relaxation/breathing techniques, Role of OT and Safety awareness Patient left semireclining in bed with call germain in reach. Spouse present. Please, see full evaluation below for more detail. OT EVALUATION: 74 year old female Admit date: 01/06/2020 Date of onset: 01/06/2020 Admit Diagnosis: Pulmonary Embolism OT Diagnosis: Impaired BADL independence, Impaired IADL independence, Weakness, Activity intolerance, Decreased endurance and Impaired self-care mobility PMH: Past Medical History: Diagnosis Date ALS (amyotrophic lateral sclerosis) PSH: Past Surgical History: Procedure Laterality Date HYSTEROSCOPY WITH DILATATION AND CURETTAGE (SHX) PAIN: Before assessment: 010 After assessment: 0 Location: N/A Pain Management: Repositioning Provided OCCUPATIONAL ROLES/HOME ENVIRONMENT: Home environment: Single story home and Lives with spouse. Bathroom access: Yes Bathroom setup: Shower Occupation(s): Retired Function prior to admission: Wheelchair primary and Assistance with ADL Equipment prior to admission: 4 wheeled walker, Grab bars, Hand held shower, raised commode seat, Shower chair , Wheelchair PERFORMANCE SKILLS/FACTORS: UE Muscle Tone: bilateral WNL UE ROM: bilateral AROM WFL UE Strength: LEODAN UE WFL Hand dominance: right Dexterity/Coordination: bilateral Gross motor skills Intact Endurance - Sitting: Fair Standing: Poor Sitting Balance - Static: Fair Dynamic: Fair - Standing: Balance - Static Fair Dynamic: Poor Dizziness: No Skin Integrity: No breakdown noted Sensation: bilateral Intact to light touch Oral Motor: WFL Communication: Able to verbalize needs Yes Other: N/A Vision: WFL Yes Other: glasses or contacts Hearing: good; no issues reported COGNITION: Orientation: person, place, date/time and situation Follows Commands: 1-step Yes Multi-step Yes Inconsistencies No Safety Awareness/Judgment: Good PROBLEM LIST: Decreased independence with ADL, Impaired postural control, Decreased functional ROM and Decreased strength/endurance for functional activity REHAB POTENTIAL/PROGNOSIS: fair PATIENT/FAMILY GOALS: To get stronger TREATMENT/INTERVENTION PLAN: Functional motor treatment, Patient/Caregivier Education, Equipment recommendations, Daily living activities, Therapeutic exercises and Neuromuscular Re-Education GOAL(S): By discharge, patient will increase independence in daily living skills as follows: 1 Patient will perform toilet transfer with SBA?setup. 2 Patient will perform UB dressing with SBA/Setup. 3 Patient will perform LB dressing with minimal assistance. 4 Patient will complete grooming tasks with SBA/Setup while standing at the sink. 5 Patient will increase endurance for functional activity as evidenced by ability to sustain 20 minutes of active participation. 6 Patient/caregiver will verbalize/demonstrate understanding/proficiency in the following home programs: Adaptive equipment , ADL training, Compensatory techniques/adaptive strategies, Fall prevention and General strengthening PATIENT-FAMILY TEACHING Patient provided with preferred teaching of verbal information on ADL training, Compensatory techniques/adaptive strategies, Relaxation/breathing techniques, Role of OT and Safety awareness. Shows readiness to learn. Verbal instruction teaching provided. Individual is able to read and verbalizes understanding of teaching provided and needs reinforcement of teaching. Nicole Falk OTR, [facility] Pager: [phone] License: [id number] Total Timed Treatment Codes: 23 Min Total Treatment Time: 49 Min Patient Complexity Level High - An occupational therapy evaluation of high complexity was completed using the above tests and measures. The following information was obtained: An occupational profile and medical and therapy history, including review of medical and/or therapy records and extensive brielle tional review of physical, cognitive, or psychosocial history related to current functional performance, Various standardized and non-standardized assessments were used to identify at least 5 or more performance deficits related to physical, cognitive, or psychosocial skills that result in activity limitations and/or participation restrictions and Clinical decision-making is of high analytic complexity, which includes an analysis of the patient profile, analysis of data from comprehensive assessment(s), and consideration of multiple treatment options. Patient present with comorbidities that affect occupational performance. Significant modification of tasks or assistance (e.g., physical or verbal) with assessment(s) is necessary to enable patient to complete evaluation component. documented in this encounter Miscellaneous Notes Care Plan - Inocencia Beaulieu RN - 01/07/2020 6:19 PM CDTDischarge instr. are Plan - Inocencia Beaulieu RN - 01/07/2020 2:23 PM CDT are Plan - Kimberly Chakraborty RN - 01/07/2020 2:36 AM CDT documented in this encounter Plan of Treatment Date Type Specialty Care Team Description 03/14/2020 Office Visit Oncology Hoda Spann Rp, M D [address] [place] [address] [phone] Name Type Priority Associated Diagnoses Order S chedule MRSA / MSSA Screen by LAB Routine ONCE f or 1 Occurrences PCR, Nares starting 2019 until 01/06/2020 POCT PT/INR(COAGUCHEK) LAB Routine ONCE for 1 Occurrences starting 2019 until 01/06/2020 Health Maintenance Due Date Last Done Comments [...] Procedure Name Priority Date/Time Associated Comments Diagnosis FIBRINOGEN Routine 01/06/2020 5:23 Results for this PM CDT procedure are i n the results section. ACTIVATED PARTIAL Routine 01/06/2020 5:23 Result s for this THRMPLAS CHICHI PM CDT procedure are i n the results section. PROTHROMBIN TIME / Routine 01/06/2020 5:23 Resul ts for this INR PM CDT procedure are i n the results section. documented in this encounter Results FIBRINOGEN (01/06/2020 5:23 PM CDT) Pathologist Sig nature Fibrinogen 364 167 - 453 mg/dL [facility] Specimen Blood - VENOUS Performing Organization Address City/State/Zipcode Phone Number [facility] CLIA: [id number] [place] [address] [address] [facility] aPTT (01/06/2020 5:23 PM CDT) Pathologist Sig nature APTT Patient 31 26 - 36 Seconds [facility] Specimen Blood - VENOUS Performing Organization Address City/State/Zipcode Phone Number [facility] CLIA: [id number] [place] [address] [address] [facility] PROTHROMBIN TIME / INR (01/06/2020 5:23 PM CDT) PROTIME PATIENT 18.8 (H) 10.1 - 12.6 [facility] Seconds SERVICES INR 1.6Comment: Normal [facility] INR <1.1; Warfarin SERVICES Therapeutic range 2.0 to 3.0 or 2.5 to 3.5, depending upon the indications. Specimen Blood - VENOUS Performing Organization Address [facility] Phone Number [facility] CLIA: [id number] [place] [address] [place] [address] documented in this encounter Visit Diagnoses Diagnosis PE (pulmonary thromboembolism) - Primary Chronic pulmonary embolism Uterine carcinosarcoma Malignant neoplasm of uterus, part unspe cified Vaginal bleeding Other specified noninflammatory disorder of vagina Dysarthria ALS (amyotrophic lateral sclerosis) Amyotrophic lateral sclerosis Weakness generalized Other malaise and fatigue Generalized weakness Other malaise and fatigue Dysphonia Impaired mobility and ADLs Mechanical problems with limbs documented in this encounter Administered Medications Medication Order MAR Action Action Date Dose Rate Site acetaminophen (TYLENOL) tablet Given 01/07/2020 1:12 AM CDT 650 mg 650 mg 650 mg, Oral, Q6HPRN, Starting Sat01/06/20 at 1815, Until Discontinued, Routine, Pain (scale 1-3), Pain (scale 4-6) apixaban (ELIQUIS) tablet 10 mg Given 01/07/2020 5:23 PM CDT 10 mg 10 mg, Oral, Q12H ABX, 13 doses, First dose (after last modification) on Criss 01/07/20 at 0400, Last dose on Sat01/13/20 at 0400, Routine Given 01/07/2020 3:56 AM CDT 10 mg D5W-LR IV infusion 1,000 mL Rate Change 01/07/2020 9:45 AM CDT 42 mL/hr at 42 mL/hr, IV Infusion, CONTINUOUS, Starting Criss 01/07/20 at 0945, Until Discontinued, Routine Medication Order MAR Action Action Date Dose Rate Site apixaban (ELIQUIS) tablet 10 mg Given 01/06/2020 3:34 PM CDT 10 mg 10 mg, Oral, BID, First dose on Sat01/06/20 at 1430, Until Discontinued, Routine [id number] IV infusion 1,000 mL New Bag 01/07/2020 2:36 AM CDT 1,000 mL 125 mL/hr at 125 mL/hr, IV Infusion, CONTINUOUS, Starting 01/06/20 at 1430, Until Criss 01/07/20 at 0944, Routine New Bag 01/06/2020 6:12 PM CDT 1,000 mL 125 mL/hr HYDROcodone-acetaminophen (NORCO 5) 5-325 Given 2019 3:55 AM CDT 1 tablet mg tablet 1 tablet 1 tablet, Oral, ONCE, 1 dose, Criss 01/07/20 at 0300, Routine documented in this encounter Insurance Payer Benefit Plan / Subscriber ID Effective Phone Address T ype Group Dates MEDICARE MEDICARE PART A [id number] 2012-Pres [phone] [address] [place] [employer] Medicare & B ent [id number] DARI VAZQUEZ [id number] BCBS OF BCBS [id number] 2012-Pres [phone] O [facility] TRADITIONAL ent [id number] [place] [address] documented as of this encounter
--- OUTSIDE RECORDS SUMMARY | 2020-01-14 17:02 | XMS REPORT | Summary of Care ---
:1945 Author Organization [facility] - [facility] [place] Address [address] [place] [id number] Care Team Providers Name Role Phone Alberto Mikael Primary Care Provider Reason for Visit Reason Comments Transition Of Care Encounter Details Date Type Department Care Team Description 01/08/2020 Transition of Care [facility] Alexia Carrera RN Transition Of Care Health [facility]- [address] [place] [id number] Allergies Active Allergy Reactions Severity Noted Date Comments Aspirin Anaphylaxis 01/04/2020 documented as of this encounter (statuses as of 01/12/2020) Medications Medication Sig Dispensed Refills Start Date End Date Status riluzole 50 mg tablet Take 50 mg by 0 Active mouth every 12 (twelve) hours. apixaban 5 mg Take 2 tabs in 60 tablet 2 01/07/2020 Active tabletIndications: the morning and pulmonary 2 tabs in the thromboembolism evening x6 days, then 1 tab AM and 1 tab PM. 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 No further follow up needed at this time. RENNY Cruz, RN-BC, CCRN Transition Pollution Control Technician Nurse Clinician IV Transitions of Care Management Team Office: [phone] [email or web address] Encounter - Alexia Mistry RN - 01/11/2020 12:59 PM CDTCM Calling [facility] requesting referral status. Per Riddhi, patient is till pending, unsure if more clinical information is needed at this time. Riddhi states she will return call to once she verifies information needed to proceed with referral. 's contact info given to Riddhi. RENNY Cruz, RN-BC, CCRN Transition Pollution Control Technician Nurse Clinician IV Transitions of Care Management Team Office: [phone] [email or web address] Encounter - Alexia Mistry RN - 01/08/2020 4:04 PM CDTCM Calling [facility] following up on referral status. Per Marielos, referral still pending insurance approval at this time. CM to follow up again at a later time. RENNY Cruz, RN-BC, CCRN Transition Pollution Control Technician Nurse Clinician IV Transitions of Care Management Team Office: [phone] [email or web address] Encounter - Alexia Mistry RN - 01/08/2020 9:45 AM CDTCM calling [facility] requesting referral status. Per Marielos, patient still pending insurance approval. CM to follow up at a later time. Alexia Mistry MSN, RN-BC, CCRN Transition Pollution Control Technician Nurse Clinician IV Transitions of Care Management Team Office: [phone] [email or web address] Encounter - Alexia Mistry RN - 01/08/2020 9:42 AM CDT TRANSITIONAL CARE MANAGEMENT ASSESSMENT 01/08/2020 Earl Orellana [id number] Earl Orellana is a 74 year old /White female was admitted on 01/06/[address] She was discharged on 01/07/20 with discharge disposition of HR- Routine Discharge. Admitting Physician: Jason Mcgrath Discharge Diagnosis: pulmonary embolism Linked Episodes Type: Episode: Status: Noted: Resolved: Last update: Updated by: TRANSITION OF CARE TCM Active 01/08/2020 01/08/2020 9:40 AM Alexia Mistry, RN Comments: [facility] [id number] outreach documentation: Readmission Questions: Was patient discharged from any acute care hospital within the last 30 days: Yes Were all questions regarding previous illness/diagnosis answered prior to discharge: No If No, comment: Pt reported a CXR was completed right before pt was discharging. Pt stated medical team called next day and was informed to come back to [facility] for blood clots. Did you have any [...] non-compliant with the previously recommended treatment: No Discharge Assessment Chart Assessed: 01/08/20 TCM Outreach Completed: 01/08/20 Do you have a few minutes to speak with me about how you are doing at home?: Yes(Pt reports doing "okay". Denies any questions/concerns at this time.) Discharge Instructions Do you understand your at-home instructions?: Yes Medications Have you filled your prescriptions and do you have them in your home? : Yes(Pt reports having med athome and taking as directed. Denies any questions at this time.) Do you know how to take your medications?: Yes Can you provide me with the names or descriptions of any [id number] or supplements you are currently taking?: Patient declined Supplies Did you receive applicable home medical supplies/equipment?: N/A Follow Up Appointment Has a follow up appointment been scheduled?: Yes([facility] appt Onc 04/03. Pt aware.) Do you have any questions about your follow up appointments?: No Are you able to get to your appointment? Who will be taking you?: Yes(Spouse) Home Health Assistance Has the home health nurse contacted you since you've been home?: No REGISTRY RN Interventions:: Contacted HH agency Home Health location: [place] [address], [address] [place] [address] F: [phone] Survey - Recognition Is there anything you would like to share about your recent hospitalization, or anyone you would like to recognize?: No Do you have any suggestions for improvement?: No Do you have any other questions or concerns at this time?: No Future Appointments: Future Appointments Provider Department Dept Phone 03/14/2020 11:00 AM Hoda Spann Rp, MD [facility] Hematology-Oncology [facility] [phone] RENNY Cruz, RN-BC, CCRN Transition Pollution Control Technician Nurse Clinician IV Transitions of Care Management Team Office: [phone] [email or web address] documented in this encounter [...] ype Group Dates MEDICARE MEDICARE PART A [id number] 2012-Pres [phone] [address] X Medicare & B ent [id number] DARI VAZQUEZ [id number] BCBS OF BCBS [id number] 2012-Pres [phone] P O B[address] [facility] TRADITIONAL ent [phone] [place] [address] documented as of this encounter
== END 2020-01-12 23:50 | disposition short-term general hospital (02) ==
LOC: ER 21:14
DX: I26.99 Other pulmonary embolism without acute cor pulmonale (principal); C55 Malignant neoplasm of uterus, part unspecified; C79.9 Secondary malignant neoplasm of unspecified site; Z88.6 Allergy status to analgesic agent
CPT/HCPCS: 96365; 96361; 93005; 85025; 80048; 36415; 83735; 85610; 80076; 84484; 83880; 71045; 96375; 99285; J2270; J7030; J2405